=== PATIENT | female | born 1945 | race Caucasian/White ===

== ENCOUNTER 2017-05-03 10:01 | Emergency (ER) | payer MEDICARE, BC ==
[2017-05-03] MEDS ORDERED: Sodium Chloride 0.9% 1,000 ML IV ONE (10:14)
[2017-05-03] MEDS ORDERED: Lidocaine/Prilocaine 2.5-2.5% Crm 5 GM Tube TOP ONE (10:45)
--- NOTE | 2017-05-03 10:55 | EDM.PDOC ---
ED HPI GENERAL MEDICAL PROBLEM - General Chief Complaint: Abdominal Pain Stated Complaint: ABDOMINAL PAIN Time Seen by Provider: 05/03/17 10:31 Source of Information: Reports: Patient History Limitations: Reports: No Limitations - History of Present Illness INITIAL COMMENTS - FREE TEXT/NARRATIVE: PT STATES SHE DEVELOPED ABD PAIN 2 DAYS AGO AND IS PROGRESSIVELY GETTING WORSE. H/O PANCREATIC CA AND SBO 2 YEARS AGO. TAKING PRUNE JUICE AND LAXATIVE AND NOW HAS DIARRHEA WITHOUT VISIBLE BLOOD. RECEIVED CHEMO ON 04/27. DENIES FEVER, DYSURIA, OR VOMITING BLOOD. Onset: Gradual Onset Date: 05/01/17 Duration: Day(s): Location: Reports: Abdomen Quality: Reports: Dull Severity: Mild Improves with: Reports: None Worsens with: Reports: None Associated Symptoms: Reports: Nausea/Vomiting. Denies: Fever/Chills Treatments S[employer]ING [employer] WORK[employer]: Reports: Other Medication(s) (LAXITIVES) - Related Data Allergies Allergy/AdvReac Type Severity Reaction Status Date / Time hydromorphone HCl Allergy Confusion Verified 05/03/17 10:11 [From Dilaudid] Home Meds: Home Meds Atropine/Diphenoxylate [Lomotil 0.025-2.5 MG] 1 tab PO QID PRN 09/12/15 [History ] Calcium Citrate/Vitamin D3 [Calcitrate + Vit D Cap (315 MG/250 UNITS)] 1 each PO DAILY 09/12/15 [History] Ranitidine HCl [Ranitidine] 150 mg PO BID 09/12/15 [History] Past Medical History Gastrointestinal History: Reports: Other (See Below) Other Gastrointestinal History: pancreatic cancer Genitourinary History: Reports: None Musculoskeletal History: Reports: None Hematologic History: Reports: Blood Transfusion(s) Oncologic (Cancer) History: Reports: Breast - Past Surgical History GI Surgical History: Reports: Other (See Below) Female Surgical History: Reports: Breast Biopsy, Mastectomy Other Musculoskeletal Surgeries/Procedures:: bunyon surgery Oncologic Surgical History: Reports: Biopsy of Breast, Mastectomy Social & Family History - Tobacco Use Smoking Status *Q: Former Smoker Years of Tobacco use: 5 Packs/Tins Daily: 0.5 Used Tobacco, but Quit: Yes Month Tobacco Last Used: 10 Second Hand Smoke Exposure: Yes - Recreational Drug Use Recreational Drug Use: No ED ROS GENERAL - Review of Systems Review Of Systems: ROS reveals no pertinent complaints other than HPI. Constitutional: Reports: Decreased Appetite HEENT: Reports: No Symptoms Respiratory: Reports: No Symptoms Cardiovascular: Reports: No Symptoms Endocrine: Reports: No Symptoms GI/Abdominal: Reports: Abdominal Pain, Diarrhea, Nausea. Denies: Black Stool, Bloody Stool : Reports: No Symptoms Musculoskeletal: Reports: No Symptoms Skin: Reports: No Symptoms Neurological: Reports: No Symptoms Psychiatric: Reports: No Symptoms Hematologic/Lymphatic: Reports: No Symptoms Immunologic: Reports: No Symptoms ED EXAM, GI/ABD - Physical Exam Exam: See Below Exam Limited By: No Limitations General Appearance: Alert, WD/WN, No Apparent Distress Nose: Normal Inspection, Normal Mucosa, No Blood Throat/Mouth: Normal Inspection, Normal Oropharynx, No Airway Compromise Head: Atraumatic, Normocephalic Neck: Normal Inspection, Supple Respiratory/Chest: No Respiratory Distress, Lungs Clear, Normal Breath Sounds, No Accessory Muscle Use, Chest Non-Tender Cardiovascular: Regular Rate, Rhythm, No Murmur GI/Abdominal: No Distention, No Mass, Hyperactive Bowel Sounds, Tenderness ( EPIGASTRIC). No: Guarding, Rebound, Rigidity Back Exam: Normal Inspection. No: CVA Tenderness (L), CVA Tenderness (R) Extremities: Normal Inspection, Non-Tender, No Pedal Edema Neurological: Alert, Oriented, Normal Cognition Psychiatric: Normal Affect, Normal Mood Skin Exam: Warm, Dry, Intact, Normal Color, No Rash Lymphatic: No Adenopathy Course - Vital Signs Last Recorded V/S: Last Vital Signs Temp 97.9 F 05/03/17 10:05 Pulse 96 05/03/17 10:05 Resp 16 05/03/17 10:05 BP 111/69 05/03/17 10:05 Pulse Ox 99 05/03/17 10:05 - Orders/Labs/Meds Orders: Active Orders 24 hr Category Date Time Status Abdomen w Cont [CT] Stat Exams 05/03/17 10:31 Ordered AMYLASE [CHEM] Stat Lab 05/03/17 10:14 Ordered CBC WITH AUTO DIFF [HEME] Stat Lab 05/03/17 10:11 Ordered CMP [COMPREHENSIVE METABOLIC PN,CMP] [CHEM] Stat Lab 05/03/17 10:14 Ordered LIPASE [CHEM] Stat Lab 05/03/17 10:14 Ordered URINALYSIS W/MICROSCOPIC [UA W/MICROSCOPIC] [URIN] Stat Lab 05/03/17 10:33 Uncollected Sodium Chloride 0.9% [Normal Saline] 1,000 ml Med 05/03/17 10:14 Active IV .BOLUS Medication Orders Sodium Chloride (Normal Saline) 1,000 mls @ 999 mls/hr IV .BOLUS ONE Stop: 05/03/17 11:14 Meds: Medications Generic Name Dose Route Start Last Admin Trade Name Foreign PRN Reason Stop Dose Admin Sodium Chloride 1,000 mls @ 999 mls/hr 05/03/17 10:14 Normal Saline IV 05/03/17 11:14 .BOLUS ONE - Radiology Interpretation Free Text/Narrative:: CT ABD/PELVIS NO CHANGES FROM 02/10/16 CT Results Date: 05/03/17 - Re-Assessments/Exams Free Text/Narrative Re-Assessment/Exam: 05/03/17 13:06 PT AFEBRILE, NONTOXIC APPEARING, VSS, PAIN RESOLVED. Departure - Departure Time of Disposition: 13:08 Disposition: Home, Self-Care 01 Condition: Good Clinical Impression: Abdominal pain - Discharge Information Instructions: Abdominal Pain, Adult, [id number], Pancreatic Cancer Additional Instructions: FOLLOW UP WITH PCP SCHEDULED. RETURN TO ER SOONER IF SYMPTOMS CONTINUE - My Orders Last 24 Hours: My Active Orders 05/03/17 10:11 CBC WITH AUTO DIFF [HEME] Stat 05/03/17 10:14 AMYLASE [CHEM] Stat CMP [COMPREHENSIVE METABOLIC PN,CMP] [CHEM] Stat LIPASE [CHEM] Stat Sodium Chloride 0.9% [Normal Saline] 1,000 ml IV .BOLUS 05/03/17 10:31 Abdomen w Cont [CT] Stat 05/03/17 10:33 URINALYSIS W/MICROSCOPIC [UA W/MICROSCOPIC] [URIN] Stat - Assessment/Plan Last 24 Hours: My Active Orders 05/03/17 10:11 CBC WITH AUTO DIFF [HEME] Stat 05/03/17 10:14 AMYLASE [CHEM] Stat CMP [COMPREHENSIVE METABOLIC PN,CMP] [CHEM] Stat LIPASE [CHEM] Stat Sodium Chloride 0.9% [Normal Saline] 1,000 ml IV .BOLUS 05/03/17 10:31 Abdomen w Cont [CT] Stat 05/03/17 10:33 URINALYSIS W/MICROSCOPIC [UA W/MICROSCOPIC] [URIN] Stat Assessment:: ABDOMINAL PAIN Plan: FOLLOW UP WITH PCP
[2017-05-03 11:40] LABS: CHLORIDE,CL 104 mmol/L (98-115); SODIUM,NA 136 mmol/L (136-145)
[2017-05-03 11:55] VITALS: BP 98/56
[2017-05-03] MEDS ORDERED: Heparin Sodium 100 Units/ML 5 ML MDV FLUSH ONE (13:14)
== END 2017-05-03 13:35 | disposition home or self-care (01) ==
LOC: KA.ED 10:01
DX: R10.9 Unspecified abdominal pain (principal); Z88.8 Allergy status to other drugs, medicaments and biological substances; Z87.891 Personal history of nicotine dependence
CPT/HCPCS: 74176; 80053; 82150; 83690; 85025; 96360; 99284; J1642; J7030

== ENCOUNTER 2017-07-07 13:00 | Emergency (ER) | payer MEDICARE, BC ==
[2017-07-07 13:11] VITALS: BP 114/67
[2017-07-07] MEDS ORDERED: Sodium Chloride 0.9% 1,000 ML IV ONE (14:23)
--- NOTE | 2017-07-07 14:31 | EDM.PDOC ---
ED HPI GENERAL MEDICAL PROBLEM - General Chief Complaint: General Stated Complaint: SOB/WEAKNESS Time Seen by Provider: 07/07/17 13:38 Source of Information: Reports: Patient, Family () History Limitations: Reports: No Limitations - History of Present Illness INITIAL COMMENTS - FREE TEXT/NARRATIVE: Patient presents with general weakness since her chemo treatment 8 days ago. 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 She had half of her pancreas removed two years ago with cancer. She normally feels weak like this for a few days but then rebounds by this time. She still has no appetite and hasn't eaten or drank well for over a week. Only about 20 oz of water daily; half a piece of toast or a TV dinner is about all she gets a day. No fever, dysuria, cough. Has had loose stools/diarrhea 2-3x/day for last 4 days she thinks is due to her chemo meds. She brought a CBC from clinic two days ago which shows WBC of 6.7. Right Abdominal Pain Score (Numeric/FACES): 2 - Related Data Allergies Allergy/AdvReac Type Severity Reaction Status Date / Time hydromorphone HCl Allergy Confusion Verified 07/07/17 13:11 [From Dilaudid] Home Meds: Home Meds Atropine/Diphenoxylate [Lomotil 0.025-2.5 MG] 1 tab PO QID PRN 09/12/15 [History ] Calcium Citrate/Vitamin D3 [Calcitrate + Vit D Cap (315 MG/250 UNITS)] 2 each PO DAILY 09/12/15 [History] Acetaminophen 650 mg PO Q4H 05/03/17 [History] Amylase/Lipase/Protease [Pancrelipase 5,000] 2 cap PO TIDMEALS 05/03/17 [History ] Dexamethasone 2 tab PO DAILY 05/03/17 [History] Lisinopril 2.5 mg PO DAILY 05/03/17 [History] Multivitamin with Minerals [Multiple Vitamin] 1 tab PO DAILY 05/03/17 [History] Ondansetron [Zofran Odt] 8 mg PO Q8H PRN 05/03/17 [History] Prochlorperazine [Compazine] 10 mg PO Q6H PRN 05/03/17 [History] LORazepam 0.5 - 1 mg PO BEDTIME 07/07/17 [History] Loperamide [Imodium] 2 mg PO ASDIRECTED 07/07/17 [History] Potassium Chloride [Klor-Con M20] 20 meq PO DAILY 07/07/17 [History] Ranitidine [Zantac] 150 mg PO BID 07/07/17 [History] Rivaroxaban [Xarelto] 20 mg PO 1800 07/07/17 [History] Past Medical History Gastrointestinal History: Reports: Other (See Below) Other Gastrointestinal History: pancreatic cancer Genitourinary History: Reports: None Musculoskeletal History: Reports: None Hematologic History: Reports: Blood Transfusion(s) Oncologic (Cancer) History: Reports: Breast - Past Surgical History GI Surgical History: Reports: Other (See Below) Female Surgical History: Reports: Breast Biopsy, Mastectomy Other Musculoskeletal Surgeries/Procedures:: bunyon surgery Oncologic Surgical History: Reports: Biopsy of Breast, Mastectomy Social & Family History - Tobacco Use Smoking Status *Q: Former Smoker Years of Tobacco use: 5 Packs/Tins Daily: 0.5 Used Tobacco, but Quit: Yes Month Tobacco Last Used: 10 Second Hand Smoke Exposure: Yes - Caffeine Use Caffeine Use: Reports: None - Recreational Drug Use Recreational Drug Use: No ED ROS GENERAL - Review of Systems Review Of Systems: See Below Constitutional: Reports: Weakness, Fatigue. Denies: Fever, Chills HEENT: Reports: No Symptoms Respiratory: Denies: Cough Cardiovascular: Reports: Lightheadedness (when she stands up to quickly; she has to go slowly the past few days). Denies: Chest Pain GI/Abdominal: Reports: Abdominal Pain (tender areas for awhile), Anorexia, Diarrhea, Decreased Appetite. Denies: Vomiting : Denies: Dysuria, Flank Pain Musculoskeletal: Reports: No Symptoms Skin: Denies: Cyanosis, Jaundice, Mottled, Pallor, Diaphoresis Neurological: Denies: Confusion, Dizziness, Headache, Trouble Speaking Psychiatric: Denies: Agitation, Anxiety, Confusion ED EXAM, GENERAL - Physical Exam Exam: See Below Exam Limited By: No Limitations General Appearance: Alert, WD/WN, No Apparent Distress Eye Exam: Bilateral Eye: EOMI, Normal Inspection, PERRL Ears: Normal External Exam, Hearing Grossly Normal Nose: Normal Inspection, No Blood Throat/Mouth: Normal Inspection, Normal Lips, Normal Voice, No Airway Compromise Head: Atraumatic, Normocephalic Neck: Normal Inspection, Supple, Non-Tender, Full Range of Motion Respiratory/Chest: No Respiratory Distress, Lungs Clear, Normal Breath Sounds, No Accessory Muscle Use Cardiovascular: Regular Rate, Rhythm, No Murmur GI/Abdominal: Normal Bowel Sounds, Soft, Tender (mid to LUQ) Extremities: Normal Range of Motion, No Pedal Edema Neurological: Alert, Oriented, Normal Cognition, No Motor/Sensory Deficits Psychiatric: Normal Affect, Normal Mood Skin Exam: Warm, Dry, Intact, Normal Color, No Rash Course - Vital Signs Last Recorded V/S: Last Vital Signs Temp 96.2 F 07/07/17 13:06 Pulse 114 H 07/07/17 13:06 Resp 20 07/07/17 13:06 BP 114/67 07/07/17 13:06 Pulse Ox 100 07/07/17 13:06 - Orders/Labs/Meds Orders: Active Orders 24 hr Category Date Time Status CBC WITH AUTO DIFF [HEME] Stat Lab 07/07/17 14:21 Ordered COMPREHENSIVE METABOLIC PN,CMP [CHEM] Stat Lab 07/07/17 14:21 Ordered UA W/MICROSCOPIC [URIN] Stat Lab 07/07/17 14:21 Uncollected Sodium Chloride 0.9% @ 999 MLS/HR (1000ml) Med 07/07/17 14:23 Ordered Sodium Chloride 0.9% [Normal Saline] 1,000 ml IV .BOLUS - Re-Assessments/Exams Free Text/Narrative Re-Assessment/Exam: 07/07/17 16:52 Patient is quite anxious and will give a dose of Lorazepam now. The IV fluids are in and patient was up to the bathroom okay. She says she feels weak and is concerned about going home. She says her sleeps in another room because of his snoring, and she sometimes can't awaken him when she needs him in the night. I suggested each of them having their cell phones beside them for that which she thought might work if he wakens to it. Departure - Departure Time of Disposition: 17:01 Disposition: Home, Self-Care 01 Condition: Good Clinical Impression: Weakness generalized, Dehydration due to radiation - Discharge Information Referrals: Parker Merritt MD [Primary Care Provider] - Additional Instructions: 1. Try to get more water intake; ideally 8 cups daily. 2. Try to make sure you get at least small portions of food 2-3 times a day. Basically whatever sounds good at this point just to get some nutrition each day. 3. Follow up with your PCP tomorrow for recheck. - My Orders Last 24 Hours: My Active Orders 07/07/17 14:21 CBC WITH AUTO DIFF [HEME] Stat COMPREHENSIVE METABOLIC PN,CMP [CHEM] Stat UA W/MICROSCOPIC [URIN] Stat 07/07/17 14:23 Sodium Chloride 0.9% @ 999 MLS/HR (1000ml) Sodium Chloride 0.9% [Normal Saline] 1,000 ml IV .BOLUS - Assessment/Plan Last 24 Hours: My Active Orders 07/07/17 14:21 CBC WITH AUTO DIFF [HEME] Stat COMPREHENSIVE METABOLIC PN,CMP [CHEM] Stat UA W/MICROSCOPIC [URIN] Stat 07/07/17 14:23 Sodium Chloride 0.9% @ 999 MLS/HR (1000ml) Sodium Chloride 0.9% [Normal Saline] 1,000 ml IV .BOLUS
[2017-07-07 14:39] LABS: CHLORIDE,CL 106 mmol/L (98-115); SODIUM,NA 137 mmol/L (136-145)
[2017-07-07] MEDS ORDERED: LORazepam 0.5 MG Tab PO ONE (16:51)
[2017-07-07] MEDS ORDERED: Loperamide 2 MG Cap PO ONE (16:55)
== END 2017-07-07 17:20 | disposition home or self-care (01) ==
LOC: KA.ED 13:00
DX: T66.XXXA Radiation sickness, unspecified, initial encounter (principal); E86.0 Dehydration; C79.89 Secondary malignant neoplasm of other specified sites; Z79.899 Other long term (current) drug therapy; Z88.8 Allergy status to other drugs, medicaments and biological substances; Z85.3 Personal history of malignant neoplasm of breast; Z98.890 Other specified postprocedural states; Z87.891 Personal history of nicotine dependence; Z85.07 Personal history of malignant neoplasm of pancreas; Z90.411 Acquired partial absence of pancreas
CPT/HCPCS: 36415; 80053; 85025; 99284; A9270; J1642; J7030; 96360

== ENCOUNTER 2017-09-01 03:25 | Observation (INO) | payer MEDICARE, BC ==
[2017-09-01] MEDS ORDERED: Ondansetron 4 MG/2 ML SDV IVPUSH ONE (03:39)
[2017-09-01] MEDS ORDERED: Sodium Chloride 0.9% 1,000 ML IV ONE (03:40)
[2017-09-01] MEDS ORDERED: Ondansetron 4 MG/2 ML SDV ONE (03:43)
[2017-09-01] MEDS ORDERED: Sodium Chloride 0.9% 1,000 ML ONE (03:43)
[2017-09-01] MEDS ORDERED: Ketorolac 30 MG/ML SDV IVPUSH ONE (04:00)
[2017-09-01] MEDS ORDERED: Ketorolac 30 MG/ML SDV ONE (04:08)
--- NOTE | 2017-09-01 04:19 | EDM.PDOC ---
ED HPI GENERAL MEDICAL PROBLEM - General Chief Complaint: Abdominal Pain Stated Complaint: abd pain Time Seen by Provider: 09/01/17 04:12 Source of Information: Reports: Patient History Limitations: Reports: No Limitations - History of Present Illness INITIAL COMMENTS - FREE TEXT/NARRATIVE: PT PRESENTS WITH EXACERBATION OF CHRONIC ABD PAIN COMPLAINT. DIAGNOSES WITH PANCREATIC CA 2 YEARS AGO AND IS UNDERGOING CHEMO THERAPY. H/O SAME PAIN ON 3 OCCASIONS OVER PAST 2 MONTHS. UNDERWENT ABD SERIES AND CT SCANS AND FOUND TO HAVE CONSTIPATION WITHOUT SBO. STATES SHE HAS HAD 5-6 BM'S OVER PAST 24 HOURS FOR SMALL SOFT STOOL BUT DENIES BLOOD OR MUCOUS. NAUSEA WITH 2 EPISODES OF VOMITING WITHOUT BLOOD. PAIN DESCRIBED WAXING/WEANING CRAMPING. DENIES FEVER , DYSURIA, CP, SOB, OR FLANK PAIN. Onset: Gradual Duration: Chronic Location: Reports: Abdomen Quality: Reports: Other (CRAMPING) Improves with: Reports: None Worsens with: Reports: None Associated Symptoms: Reports: Nausea/Vomiting, Weakness. Denies: Chest Pain, Fever/Chills, Shortness of Breath - Related Data Allergies Allergy/AdvReac Type Severity Reaction Status Date / Time hydromorphone HCl Allergy Confusion Verified 07/23/17 16:11 [From Dilaudid] Home Meds: Home Meds Atropine/Diphenoxylate [Lomotil 0.025-2.5 MG] 1 tab PO QID PRN 09/12/15 [History ] Calcium Citrate/Vitamin D3 [Calcitrate + Vit D Cap (315 MG/250 UNITS)] 2 each PO DAILY 09/12/15 [History] Acetaminophen 650 mg PO Q4H PRN 05/03/17 [History] Amylase/Lipase/Protease [Pancrelipase 5,000] 2 cap PO TIDMEALS 05/03/17 [History ] Dexamethasone 8 mg PO ASDIRECTED 05/03/17 [History] Lisinopril 2.5 mg PO DAILY 05/03/17 [History] Multivitamin with Minerals [Multiple Vitamin] 1 tab PO DAILY 05/03/17 [History] Ondansetron [Zofran Odt] 8 mg PO TID PRN 05/03/17 [History] Prochlorperazine [Compazine] 10 mg PO QID PRN 05/03/17 [History] LORazepam 0.5 - 1 mg PO BEDTIME 07/07/17 [History] Loperamide [Imodium] 2 mg PO ASDIRECTED PRN 07/07/17 [History] Potassium Chloride [Klor-Con M20] 20 meq PO DAILY 07/07/17 [History] Ranitidine [Zantac] 150 mg PO BID 07/07/17 [History] Rivaroxaban [Xarelto] 20 mg PO 1800 07/07/17 [History] Past Medical History Gastrointestinal History: Reports: Other (See Below) Other Gastrointestinal History: pancreatic cancer Genitourinary History: Reports: None Musculoskeletal History: Reports: None Hematologic History: Reports: Blood Transfusion(s) Immunologic History: Reports: Immunosuppression Oncologic (Cancer) History: Reports: Breast, Pancreatic - Past Surgical History Female Surgical History: Reports: Breast Biopsy, Mastectomy Other Musculoskeletal Surgeries/Procedures:: bunyon surgery Oncologic Surgical History: Reports: Biopsy of Breast, Mastectomy Social & Family History - Tobacco Use Smoking Status *Q: Former Smoker Years of Tobacco use: 5 Packs/Tins Daily: 0.5 Used Tobacco, but Quit: Yes Month Tobacco Last Used: 10 Second Hand Smoke Exposure: No - Caffeine Use Caffeine Use: Reports: None - Recreational Drug Use Recreational Drug Use: No ED ROS GENERAL - Review of Systems Review Of Systems: ROS reveals no pertinent complaints other than HPI. Constitutional: Reports: Weakness (GENERALIZED OF CHRONIC NATURE) HEENT: Reports: No Symptoms Respiratory: Reports: No Symptoms Cardiovascular: Reports: No Symptoms Endocrine: Reports: No Symptoms GI/Abdominal: Reports: Abdominal Pain, Constipation, Decreased Appetite, Nausea , Vomiting. Denies: Bloody Stool : Reports: No Symptoms Musculoskeletal: Reports: No Symptoms Skin: Reports: No Symptoms Neurological: Reports: No Symptoms Psychiatric: Reports: No Symptoms Hematologic/Lymphatic: Reports: No Symptoms Immunologic: Reports: No Symptoms ED EXAM, GI/ABD - Physical Exam Exam: See Below Exam Limited By: No Limitations General Appearance: Alert, WD/WN, No Apparent Distress Nose: Normal Inspection, Normal Mucosa, No Blood Throat/Mouth: Normal Inspection, Normal Oropharynx, No Airway Compromise Head: Atraumatic, Normocephalic Neck: Normal Inspection Respiratory/Chest: No Respiratory Distress, Lungs Clear, Normal Breath Sounds, No Accessory Muscle Use, Chest Non-Tender Cardiovascular: Regular Rate, Rhythm, No Murmur GI/Abdominal Exam: Normal Bowel Sounds, Soft, No Distention, No Abnormal Bruit, No Mass, Tender (DIFFUSELY). No: Guarding, Rigid, Rebound Back Exam: Normal Inspection. No: CVA Tenderness (L), CVA Tenderness (R) Extremities: Normal Inspection Neurological: Alert, Oriented Psychiatric: Anxious Skin Exam: Warm, Dry, Intact, Normal Color, No Rash Lymphatic: No Adenopathy Course - Orders/Labs/Meds Orders: Active Orders 24 hr Category Date Time Status CBC WITH AUTO DIFF [HEME] Stat Lab 09/01/17 04:00 Received CMP [COMPREHENSIVE METABOLIC PN,CMP] [CHEM] Stat Lab 09/01/17 04:00 Received Sodium Chloride 0.9% [Normal Saline] 1,000 ml Med 09/01/17 03:40 Active IV .BOLUS Medication Orders Sodium Chloride (Normal Saline) 1,000 mls @ 999 mls/hr IV .BOLUS ONE Stop: 09/01/17 04:40 Meds: Medications Generic Name Dose Route Start Last Admin Trade Name Freq PRN Reason Stop Dose Admin Sodium Chloride 1,000 mls @ 999 mls/hr 09/01/17 03:40 Normal Saline IV 09/01/17 04:40 .BOLUS ONE Discontinued Medications Generic Name Dose Route Start Last Admin Trade Name Freq PRN Reason Stop Dose Admin Sodium Chloride Confirm 09/01/17 03:43 09/01/17 03:52 Normal Saline Administered 09/01/17 03:44 Not Given Dose 1,000 mls @ as directed .ROUTE .STK-MED ONE Ketorolac Tromethamine Confirm 09/01/17 04:08 Toradol Administered 09/01/17 04:09 Dose 30 mg .ROUTE .STK-MED ONE Ondansetron HCl 4 mg 09/01/17 03:39 Zofran IVPUSH 09/01/17 03:40 ONETIME ONE Ondansetron HCl Confirm 09/01/17 03:43 09/01/17 03:52 Zofran Administered 09/01/17 03:44 Not Given Dose 4 mg .ROUTE .STK-MED ONE - Re-Assessments/Exams Free Text/Narrative Re-Assessment/Exam: 09/01/17 04:58 PT AFEBRILE, NONTOXIC APPEARING, PAIN CONTROLLED. DISCUSSED CASE WITH DR PORTER. WILL GIVE ZOSYN AND ADMIT TO OBS Departure - Departure Time of Disposition: 04:59 Disposition: Refer to Observation Condition: Fair Clinical Impression: Abdominal pain Qualifiers: Abdominal location: generalized Qualified Code(s): R10.84 - Generalized abdominal pain Leukocytosis Qualifiers: Leukocytosis type: unspecified Qualified Code(s): D72.829 - Elevated white blood cell count, unspecified - Discharge Information - My Orders Last 24 Hours: My Active Orders 09/01/17 03:40 Sodium Chloride 0.9% [Normal Saline] 1,000 ml IV .BOLUS 09/01/17 04:00 CBC WITH AUTO DIFF [HEME] Stat CMP [COMPREHENSIVE METABOLIC PN,CMP] [CHEM] Stat - Assessment/Plan Last 24 Hours: My Active Orders 09/01/17 03:40 Sodium Chloride 0.9% [Normal Saline] 1,000 ml IV .BOLUS 09/01/17 04:00 CBC WITH AUTO DIFF [HEME] Stat CMP [COMPREHENSIVE METABOLIC PN,CMP] [CHEM] Stat Assessment:: ABD PAIN / LEUKOCYTOSIS Plan: ADMIT OBS TO DR PORTER
[2017-09-01 04:33] LABS: CHLORIDE,CL 107 mmol/L (98-115); SODIUM,NA 143 mmol/L (136-145)
[2017-09-01] MEDS ORDERED: Piperacillin/Tazobactam/Dext 3.375 GM in Premix Bag 1 BAG IV ONE (04:57)
[2017-09-01] MEDS: Sodium Chloride 0.9% 1,000 ML IV SCH ×2 (05:00→14:58)
--- NOTE | 2017-09-01 09:07 | PCM.HP ---
H&P History of Present Illness - General Date of Service: 09/01/17 Source of Information: Patient, Old Records, RN History Limitations: Reports: No Limitations - History of Present Illness Initial Comments - Free Text/Narative: This 71-year-old female was admitted very early this morning through the ED complaining of some abdominal pain. Shanti was diagnosed with pancreatic cancer January 2015 and she is currently receiving Folfirinox, along with Abraxane & Gemzar. Patient has had similar episodes of abdominal pain and was seen by oncology approximately 2 weeks ago with similar complaints in which x-ray abdominal x-ray demonstrated non-obstructive bowel gas pattern with some moderate constipation--she was given laxatives which did seem to help. However ever since she states she has had altered bowel habits in which she will go multiple times during the day however they are formed and soft. She denies diarrhea, bloody stools or mucousy stools. Her pain was described in the ED as waxing and waning such as cramping. No fever or dysuria, denied chest pain flank pain or shortness of breath. Was seen in the [facility] yesterday for IV fluids for dehydration. She has not felt well for days, she is to see Dr Sun next week in [place]. She denies any home fevers, however admits to very low temps of 94. Had Wipple procedure 2- 3 years ago and had SBO at that time and patient feels her current abd pain is similar in nature. Vomited one time last night. Had been on fentanyl for pain. Lower Abdominal Pain Score (Numeric/FACES): 2 - Related Data Allergies/Adverse Reactions: Allergies Allergy/AdvReac Type Severity Reaction Status Date / Time hydromorphone HCl Allergy Confusion Verified 09/01/17 05:04 [From Dilaudid] morphine Allergy Confusion Verified 09/01/17 05:04 Home Medications: Home Meds Atropine/Diphenoxylate [Lomotil 0.025-2.5 MG] 1 tab PO QID PRN 09/12/15 [History ] Calcium Citrate/Vitamin D3 [Calcitrate + Vit D Cap (315 MG/250 UNITS)] 2 each PO DAILY 09/12/15 [History] Acetaminophen 650 mg PO Q4H PRN 05/03/17 [History] Amylase/Lipase/Protease [Pancrelipase 5,000] 2 cap PO TIDMEALS 05/03/17 [History ] Dexamethasone 8 mg PO ASDIRECTED 05/03/17 [History] Lisinopril 2.5 mg PO DAILY 05/03/17 [History] Multivitamin with Minerals [Multiple Vitamin] 1 tab PO DAILY 05/03/17 [History] Ondansetron [Zofran Odt] 8 mg PO TID PRN 05/03/17 [History] Prochlorperazine [Compazine] 10 mg PO QID PRN 05/03/17 [History] LORazepam 0.5 - 1 mg PO BEDTIME 07/07/17 [History] Loperamide [Imodium] 2 mg PO ASDIRECTED PRN 07/07/17 [History] Potassium Chloride [Klor-Con M20] 20 meq PO DAILY 07/07/17 [History] Ranitidine [Zantac] 150 mg PO BID 07/07/17 [History] Rivaroxaban [Xarelto] 20 mg PO 1800 07/07/17 [History] Past Medical History HEENT History: Reports: Hard of Hearing, Impaired Vision Cardiovascular History: Reports: Hypertension Gastrointestinal History: Reports: Chronic Constipation, Diverticulosis, GERD, Hemorrhoids, Other (See Below) Other Gastrointestinal History: pancreatic cancer with mets to the transverse colon Genitourinary History: Reports: None Musculoskeletal History: Reports: None, Back Pain, Chronic Hematologic History: Reports: Blood Transfusion(s) Immunologic History: Reports: Immunosuppression Oncologic (Cancer) History: Reports: Breast, Colon, Pancreatic - Infectious Disease History 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, Herpes - Past Surgical History HEENT Surgical History: Reports: Tonsillectomy Other Respiratory Surgeries/Procedures: h/o smoking GI Surgical History: Reports: Cholecystectomy, Colonoscopy, Other (See Below) Other GI Surgeries/Procedures: whipple resection Female Surgical History: Reports: Breast Biopsy, Mastectomy, Tubal Ligation Other Musculoskeletal Surgeries/Procedures:: bunyon surgery Oncologic Surgical History: Reports: Biopsy of Breast, Mastectomy Social & Family History - Tobacco Use Smoking Status *Q: Former Smoker Years of Tobacco use: 30 Packs/Tins Daily: 0.5 Used Tobacco, but Quit: Yes Month Tobacco Last Used: 10 Second Hand Smoke Exposure: No - Caffeine Use Caffeine Use: Reports: None - Recreational Drug Use Recreational Drug Use: No H&P Review of Systems - Review of Systems: Review Of Systems: See Below General: Reports: Chills, Decreased Appetite, Weight Loss. Denies: Fever HEENT: Reports: Other (dry mouth) Pulmonary: Reports: Shortness of Breath (on exertion ). Denies: Cough, Sputum Cardiovascular: Reports: Dyspnea on Exertion. Denies: PND, Edema Gastrointestinal: Reports: Abdominal Pain (very mild abd pain, diffuse, non specific, slight off to right side. ). Denies: Black Stool, Constipation, Diarrhea, Difficulty Swallowing Genitourinary: Reports: No Symptoms Musculoskeletal: Reports: No Symptoms Skin: Reports: No Symptoms Psychiatric: Reports: No Symptoms Neurological: Denies: Confusion Hematologic/Lymphatic: Reports: Anemia. Denies: Swollen Glands Immunologic: Reports: Other (immunocompromised. ) Exam - Exam Exam: See Below - Vital Signs Vital Signs: Last Vital Signs Temp 97.9 F 09/01/17 05:30 Pulse 88 09/01/17 05:30 Resp 20 09/01/17 05:30 BP 117/63 09/01/17 05:30 Pulse Ox 98 09/01/17 05:30 Weight: 112 lb 1.6 oz - Exam Quality Assessment: No: Supplemental Oxygen General: Alert, Oriented, Cooperative. No: Mild Distress HEENT: Conjunctiva Clear, Hearing Intact, Mucosa Moist & [place] Neck: Supple, Trachea Midline. No: JVD Lungs: Clear to Auscultation, Normal Respiratory Effort Cardiovascular: Regular Rate, Regular Rhythm GI/Abdominal Exam: Normal Bowel Sounds, Soft, Non-Tender (slightly tender to left and right upper, non specific, patient has difficult time pinpointing. ), No Organomegaly. No: Distended, Rigid, Rebound, Abnormal Bowel Sounds, Mass Rectal (Female) Exam: Deferred Back Exam: No: CVA Tenderness (L), CVA Tenderness (R) Extremities: No Pedal Edema Peripheral Pulses: 2+: Radial (L), Radial (R) Skin: Warm, Dry, Intact Neurological: Cranial Nerves Intact, Reflexes Equal Bilateral Neuro Extensive - Mental Status: Alert, Oriented x3, Normal Mood/Affect, Normal Cognition Neuro Extensive - Motor, Sensory, Reflexes: CN II-XII Intact, Normal Gait, Normal Reflexes Psychiatric: Alert, Normal Affect, Normal Mood - Patient Data Result Diagrams: 09/01/17 04:00 09/01/17 04:00 *Q Meaningful Use (ADM) - VTE *Q VTE Criteria *Q: - Stroke *Q Stroke Criteria *Q: - AMI *Q AMI Criteria *Q: Problem List Initiated/Reviewed/Updated: Yes Orders Last 24hrs: Active Orders 24 hr Category Date Time Status CXR [Chest 2V] [CR] Routine Exams 09/01/17 08:00 Taken CULTURE BLOOD [BC] Stat Lab 09/01/17 05:20 Received CULTURE BLOOD [BC] Stat Lab 09/01/17 05:30 Received Sodium Chloride 0.9% [Normal Saline] 1,000 ml Med 09/01/17 06:00 Active IV ASDIRECTED Blood Culture x2 Reflex Set [OM.PC] Stat Oth 09/01/17 05:47 Ordered Medication Orders Sodium Chloride (Normal Saline) 1,000 mls @ 100 mls/hr IV ASDIRECTED KATELYN Last Admin: 09/01/17 05:00 Dose: 100 mls/hr Assessment/Plan Comment:: HISTORY OF PRESENT ILLNESS This 71-year-old female was admitted very early this morning through the ED complaining of some abdominal pain. Shanti was diagnosed with pancreatic cancer January 2015 and she is currently receiving Folfirinox, along with Abraxane & Gemzar. Patient has had similar episodes of abdominal pain and was seen by oncology approximately 2 weeks ago with similar complaints in which x-ray abdominal x-ray demonstrated non-obstructive bowel gas pattern with some moderate constipation--she was given laxatives which did seem to help. However ever since she states she has had altered bowel habits in which she will go multiple times during the day however they are formed and soft. She denies diarrhea, bloody stools or mucousy stools. Her pain was described in the ED as waxing and waning such as cramping. No fever or dysuria, denied chest pain flank pain or shortness of breath. Was seen in the [facility] yesterday for IV fluids for dehydration. She has not felt well for days, she is to see Dr Sun next week in [place]. She denies any home fevers, however admits to very low temps of 94. Had Wipple procedure 2- 3 years ago and had SBO at that time and patient feels her current abd pain is similar in nature. Vomited one time last night. Had been on fentanyl for pain. ONCOLOGY HISTORY Shanti originally presented to the [facility] with complaints of jaundice in January 2015. An endoscopic US showed a 3.3 cm pancreatic head mass which was encasing and invading the common hepatic artery and making contact with portal vein superior mesenteric vein confluence. Subsequent fine-needle aspiration confirmed malignancy consistent with adenocarcinoma of the pancreas. She received pre-op chemotherapy with FOLFIRINOX starting on 02/20/15. She received 6 cycles. The last cycle was on 05/08/15. She then had a Whipple resection procedure on June 13, 2015. Notify for her to get her chemotherapy in [place] she was recently changed to Gemcitabine/Abraxane with her first doses in [place]. The plan is for her to see onlcology at [facility] 09/08/17 before her next cycle of chemo which should be scheduled on 09/15/17 long as her LFTs are improving. PERTINENT ED WORKUP White count 26,000 (on CSF of Zarxio/filgrastim) Neutrophils 89% Abnormal liver function tests Hypoalbuminemia blood cultures and UA ordered prior to antibiotics broad-spectrum antibiotics IV fluids Admitted to observation Abdominal x-ray, 2016, ordered by oncology due to similar abdominal pain --No free air, moderate amount of stool, non-obstructive bowel gas pattern Abd CT; dtd 07/15/2017 --No evidence of metastatic disease within the chest. --Interval decrease in size of metastatic implants along the proximal to mid transverse colon and within the posterior cul de sac. No new or enlarging abdominal metastases are identified. --Interval mild decrease in size of enlarged central mesenteric lymph nodes. --Diffuse hepatic steatosis --Postoperative changes of prior Whipple procedure without evidence of complication --Liver US, 07/2017, fatty liver PERTINENT SURGICAL HISTORY Whipple resection, 2014 Cholecystectomy Pancreatic excision/Pancreaticoduodenectomy Impression/plan Abdominal pain, mild, diffuse. Will monitor. continue with broad-spectrum antibiotics and ongoing monitoring. Trend LFTs, must trend down in order for her to continue with Gemcitabine/Abraxane here in [place]. She is due September 03 Leukocytosis, neutrophilia, had been on Zarxio/filgrastim, colony-stimulating factor. Will monitor for any signs of sepsis. Stage IIB adenocarcinoma of the pancreas, DX, January 2015, recently underwent cycle #8 of FOLFIRINOX, along with Abraxane & Gemzar. Dehydration, mild, not tolerating adequate oral so continue with IV gentle Anemia, due to chemotherapy, hemoglobin 8.2, BACH, 1 g drop from yesterday however likely dilutional component also. Will hold on any transfusion for now. Hypoalbuminemia, profound. Nutritional supplements ordered. Immunocompromised host, afebrile, Hypocalcemia, corrected with albumin Osteoporosis, Started Prolia on 11/20/16. Fatty liver disease, with elevated LFT's will trend since she is on Gemcitabine/ Abraxane here in [place]. 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 Overall plan/discharge planning. Continue with observation, no criteria for acute admission for now. IV fluids today, monitor and trend LFTs, will see if she needs any radiological images. social service consultation, order for her to continue with Gemcitabine/Abraxane here in [place], LFTs must trend down. She is due September 03. Do not anticipate acute admission. Been you broad-spectrum IV antibiotics. Nutritional support. Monitor for ongoing abdominal pain and worsening condition.
[2017-09-01] MEDS ORDERED: Acetaminophen 325 MG Tab PO PRN (09:55)
[2017-09-01] MEDS ORDERED: Atropine/Diphenoxylate 0.025-2.5 MG Tab PO PRN (09:55)
[2017-09-01] MEDS ORDERED: Prochlorperazine 5 MG Tab PO PRN (09:55)
[2017-09-01] MEDS ORDERED: Dexamethasone 4 MG Tab PO SCH (10:00)
[2017-09-01] MEDS ORDERED: Ondansetron 4 MG/2 ML SDV IVPUSH PRN (11:41)
[2017-09-01] MEDS ORDERED: Ondansetron 4 MG Tab.DIS PO ONE (11:41)
[2017-09-01] MEDS ORDERED: Ondansetron 4 MG Tab.DIS PO PRN (11:50)
[2017-09-01] MEDS: PANCRELIPASE PO SCH ×2 (12:06→18:02)
[2017-09-01] MEDS ORDERED: Sodium Chloride 0.9% 1,000 ML IV SCH (15:45)
[2017-09-01] MEDS ORDERED: Iopamidol 612 MG/ML 75 ML Bottle IV ONE (16:34)
[2017-09-01] MEDS ORDERED: Sodium Chloride 0.9% 50 ML SDV FLUSH SCH (16:45)
[2017-09-01] MEDS ORDERED: Rivaroxaban 10 MG Tab PO SCH (18:00)
[2017-09-01 18:45] VITALS: BP 113/76
[2017-09-01] MEDS ORDERED: LORazepam 0.5 MG Tab PO SCH (21:00)
--- NOTE | 2017-09-02 08:11 | DISCH ---
FINAL DIAGNOSES: 1. Pancreatic carcinoma with metastasis to the abdomen. 2. High-grade proximal small-bowel obstruction. REASON FOR ADMISSION: This 71-year-old patient was admitted in the early hours of the morning to [facility] because of an elevated white count and with a left shift. She had some minimal abdominal pain also. The patient is currently receiving chemotherapy for a pancreatic carcinoma that has disseminated into her abdomen. She does have metastatic carcinoma in her abdomen over the transverse colon and the proximal colon also. Recently, she was admitted to the [facility] because of obstipation. LABORATORY DATA: Lab data is as follows, the patient's white count was 26,000, hemoglobin is 8.2, neutrophils 89.5, and lymphocytes of 4.5. Sodium, potassium chloride, carbon dioxide, BUN, creatinine are normal. Blood sugar was 186. Her AST was 95, normal 37. ALT was 243, normal 78. Alkaline phosphatase was 327, normal 116. HOSPITAL COURSE AND TREATMENT: The patient was admitted to the hospital and was given IV Zosyn. Chest x-ray was normal. The patient was observed carefully. She was felt to be somewhat dehydrated. IVs were increased. She was continued on lisinopril, Ativan, and Tylenol. Through the course of the day, the patient's complained of increased abdominal pain and slight distention. A flat plate of the abdomen revealed a full stomach and multiple fluid levels suggestive of possible small bowel obstruction. A CT scan was performed which shows a high-grade proximal small-bowel obstruction. Surgery at [facility] was called and a transfer was made to [place] via ground ambulance with an IV running. Medications were called in for nausea and for pain control during the transfer. The patient was also informed of the transfer. She was in a stable condition. /[id number]/MODL MTDD
[2017-09-02] MEDS ORDERED: Potassium Chloride 20 MEQ Tab.ER PO SCH (09:00)
[2017-09-02] MEDS ORDERED: Lisinopril 5 MG Tab PO SCH (09:00)
== END 2017-09-01 19:00 ==
LOC: KA.ED 03:25 → KA.MS 05:10
PROVIDERS: ADMIT Family Medicine; ATTEND Family Medicine
DX: C79.89 Secondary malignant neoplasm of other specified sites (principal); C25.9 Malignant neoplasm of pancreas, unspecified; K56.609 Unspecified intestinal obstruction, unspecified as to partial versus complete obstruction; K59.09 Other constipation; I10 Essential (primary) hypertension; K21.9 Gastro-esophageal reflux disease without esophagitis; Z90.49 Acquired absence of other specified parts of digestive tract; Z98.890 Other specified postprocedural states; Z98.51 Tubal ligation status; Z87.891 Personal history of nicotine dependence; Z88.8 Allergy status to other drugs, medicaments and biological substances; Z79.899 Other long term (current) drug therapy
CPT/HCPCS: 71020; 74020; 74177; 80053; 85025; 85651; 87040; 96361; 96374; 96375; 99284; J1885; J2405; J2543; J7030; Q0164; Q9967; 43752; 51798; 96365; 96376; G0378

== ENCOUNTER 2017-09-09 09:23 | Inpatient (IN) | payer MEDICARE, BC ==
--- NOTE | 2017-09-09 13:53 | PCM.HP ---
H&P History of Present Illness - General Date of Service: 09/09/17 Source of Information: Patient, Family, Old Records, RN History Limitations: Reports: No Limitations Lower Back Pain Score (Numeric/FACES): 5 Abdominal Pain Score (Numeric/FACES): 5 - Related Data Allergies/Adverse Reactions: Allergies Allergy/AdvReac Type Severity Reaction Status Date / Time hydromorphone HCl Allergy Confusion Verified 09/09/17 13:39 [From Dilaudid] morphine Allergy Confusion Verified 09/09/17 13:39 Home Medications: Home Meds Acetaminophen 650 mg PO Q6HR PRN 05/03/17 [History] Ondansetron [Zofran Odt] 8 mg PO TID PRN 05/03/17 [History] Prochlorperazine [Compazine] 10 mg PO QID PRN 05/03/17 [History] LORazepam 0.5 mg PO BEDTIME 07/07/17 [History] Ranitidine [Zantac] 150 mg PO BEDTIME 07/07/17 [History] Rivaroxaban [Xarelto] 20 mg PO DAILY@1800 07/07/17 [History] Lipase/Protease/Amylase [Librado [place] 8,000 Units Capsule] 2 cap PO WITHSNACKS 12/25 [History] Lipase/Protease/Amylase [Librado [place] 8,000 Units Capsule] 4 cap PO TIDMEALS 09/09 [History] Magnesium Oxide 500 mg PO DAILY 09/09/17 [History] Pantoprazole [ProTONIX] 40 mg PO ACBREAKFAST 09/09/17 [History] Phenol [Chloraseptic] 2 sprays PO Q2HR PRN 09/09/17 [History] Phosphorus #1 [K-Phos Neutral Tablet] 500 mg PO BIDMEALS 09/09/17 [History] Sennosides/Docusate Sodium [Senna-Docusate Sodium Tablet] 1 - 2 tab PO BID 09/09 [History] Sertraline [Zoloft] 50 mg PO DAILY 09/09/17 [History] hydrOXYzine HCl [Atarax] 25 mg PO QID PRN 09/09/17 [History] oxyCODONE 5 mg PO Q3HR PRN 09/09/17 [History] Past Medical History HEENT History: Reports: Hard of Hearing, Impaired Vision Cardiovascular History: Reports: Hypertension Gastrointestinal History: Reports: Chronic Constipation, Diverticulosis, GERD, Hemorrhoids, Other (See Below) Other Gastrointestinal History: pancreatic cancer with mets to the transverse colon Genitourinary History: Reports: None Musculoskeletal History: Reports: None, Back Pain, Chronic Hematologic History: Reports: Blood Transfusion(s) Immunologic History: Reports: Immunosuppression Oncologic (Cancer) History: Reports: Breast, Colon, Pancreatic - Infectious Disease History 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, Herpes - Past Surgical History HEENT Surgical History: Reports: Tonsillectomy Other Respiratory Surgeries/Procedures: h/o smoking GI Surgical History: Reports: Cholecystectomy, Colonoscopy, Other (See Below) Other GI Surgeries/Procedures: whipple resection Female Surgical History: Reports: Breast Biopsy, Mastectomy, Tubal Ligation Other Musculoskeletal Surgeries/Procedures:: bunyon surgery Oncologic Surgical History: Reports: Biopsy of Breast, Mastectomy Social & Family History - Tobacco Use Smoking Status *Q: Former Smoker Years of Tobacco use: 30 Packs/Tins Daily: 0.5 Used Tobacco, but Quit: Yes Month Tobacco Last Used: 10 Second Hand Smoke Exposure: No - Caffeine Use Caffeine Use: Reports: None - Recreational Drug Use Recreational Drug Use: No H&P Review of Systems - Review of Systems: Review Of Systems: See Below General: Reports: Chills. Denies: Fever HEENT: Reports: Sore Throat Pulmonary: Reports: No Symptoms Cardiovascular: Reports: No Symptoms Gastrointestinal: Reports: Abdominal Pain, Distension. Denies: Constipation, Diarrhea, Decreased Appetite, Difficulty Swallowing, Mucous in Stool, Nausea, Stool Incontinence, Vomiting Genitourinary: Reports: No Symptoms Musculoskeletal: Reports: No Symptoms Skin: Reports: No Symptoms Psychiatric: Reports: No Symptoms Neurological: Reports: No Symptoms Hematologic/Lymphatic: Reports: Anemia, Easy Bleeding Immunologic: Reports: No Symptoms Exam - Exam Exam: See Below - Exam Quality Assessment: No: Supplemental Oxygen General: Alert, Oriented, 4 HEENT: Mucosa Moist & [place] Neck: Supple, Trachea Midline, 2 Lungs: Clear to Auscultation, Normal Respiratory Effort Cardiovascular: Regular Rate, Regular Rhythm, Normal S1, Normal S2 GI/Abdominal Exam: Normal Bowel Sounds, Non-Tender, Distended (slight distention , no nausea or vomiting. ). No: Guarding, Rigid, Rebound, Tender Rectal (Female) Exam: Deferred Back Exam: No: CVA Tenderness (L), CVA Tenderness (R) Extremities: Normal Inspection, Normal Range of Motion, Non-Tender, No Pedal Edema, Normal Capillary Refill Peripheral Pulses: 2+: Radial (L), Radial (R) Skin: Warm, Dry, Intact Neurological: Cranial Nerves Intact, Reflexes Equal Bilateral Neuro Extensive - Mental Status: Alert, Oriented x3, Normal Mood/Affect, Normal Cognition Neuro Extensive - Motor, Sensory, Reflexes: CN II-XII Intact Psychiatric: Alert, Normal Affect, Normal Mood - Patient Data Result Diagrams: 09/13/17 08:45 09/13/17 08:45 *Q Meaningful Use (ADM) - VTE *Q VTE Criteria *Q: - Stroke *Q Stroke Criteria *Q: - AMI *Q AMI Criteria *Q: Problem List Initiated/Reviewed/Updated: Yes Assessment/Plan Comment:: HISTORY OF PRESENT ILLNESS Shanti who is 71 years old and was transferred from a [facility] to [facility] for swing bed therapy and rehabilitation. She currently has metastatic adenocarcinoma of the pancreas. She had been stressed transferred here from [facility] due to a high-grade SBO which was treated conservatively and self resolved. While in [place] she did have GI bleeding due to tumor involvement of the colon, which required blood transfusions. Because of her weakness, it was decided to discontinue chemotherapy. She has opted to discontinue her chemotherapy of gemcitabine & Abraxaneor and go into hospice and palliative care at home upon some rehabilitation here at [place] in swing bed. Code Status: DNR ___ #1 Metastatic pancreatic cancer, no longer under chemotherapy of gemcitabine & Abraxaneor. #2, Weakness, PT and nutritional c/s. #3, Recent high-grade SBO, conservative treatment, resolved, will monitor closely. Tramadol for pain #4, Anemia, GI bleed, holding xarelto due to recent GI bleed necessitating blood transfusions. #5. Pain mgt, Tramadol, tylenol. Discharge planning. SS/PT and Nutritional Consults, Long discussion with patient/family, They have not fully decided for Hospice/Palliative care at this time. They plan for eventual home, self-care as spouse not available around the clock. Pt desires IV fluids and blood transfusions if needed.
[2017-09-09] MEDS ORDERED: Acetaminophen 325 MG Tab PO PRN (16:55)
[2017-09-09] MEDS ORDERED: Phenol 1.4% Oral Spray 177 ML Bottle MUCMEM PRN (19:01)
[2017-09-09] MEDS ORDERED: hydrOXYzine HCl 25 MG Tab PO PRN (19:01)
[2017-09-09] MEDS ORDERED: Ondansetron 4 MG Tab.DIS PO PRN (19:01)
[2017-09-09] MEDS ORDERED: LIPASE PO SCH (19:15)
[2017-09-09] MEDS ORDERED: PROTEASE PO SCH (19:15)
[2017-09-09] MEDS ORDERED: AMYLASE PO SCH (19:15)
[2017-09-09] MEDS: LORazepam 0.5 MG Tab PO SCH (20:44)
[2017-09-09] MEDS: LIPASE PO SCH (21:00)
[2017-09-09] MEDS: AMYLASE PO SCH (21:00)
[2017-09-09] MEDS: PROTEASE PO SCH (21:00)
[2017-09-10] MEDS: Pantoprazole 40 MG Tab.CR PO SCH (08:14)
[2017-09-10] MEDS: PROTEASE PO SCH (08:16)
[2017-09-10] MEDS: LIPASE PO SCH (08:16)
[2017-09-10] MEDS: Sertraline 50 MG Tab PO SCH (08:16)
[2017-09-10] MEDS: AMYLASE PO SCH (08:16)
[2017-09-10] MEDS: Phosphorus #1 250 MG Tab PO SCH ×2 (08:16→18:05)
[2017-09-10] MEDS: Magnesium Oxide 500 MG Tab PO SCH (08:16)
[2017-09-10] MEDS ORDERED: PANCRELIPASE PO SCH (11:15)
[2017-09-10] MEDS: PANCRELIPASE PO SCH ×2 (12:18→18:06)
[2017-09-10] MEDS ORDERED: PANCRELIPASE PO ONE ×2 (12:18→18:06)
[2017-09-10] MEDS: LORazepam 0.5 MG Tab PO SCH (21:00)
[2017-09-11] MEDS: Magnesium Oxide 500 MG Tab PO SCH (08:07)
[2017-09-11] MEDS: Phosphorus #1 250 MG Tab PO SCH ×2 (08:07→17:55)
[2017-09-11] MEDS: Pantoprazole 40 MG Tab.CR PO SCH (08:07)
[2017-09-11] MEDS: Sertraline 50 MG Tab PO SCH (08:08)
[2017-09-11] MEDS: PANCRELIPASE PO SCH ×3 (08:09→17:55)
[2017-09-11] MEDS ORDERED: PANCRELIPASE PO ONE ×3 (08:09→17:55)
[2017-09-11] MEDS ORDERED: Furosemide 40 MG Tab PO ONE (10:00)
[2017-09-11] MEDS: LORazepam 0.5 MG Tab PO SCH (21:15)
[2017-09-12] MEDS: Sertraline 50 MG Tab PO SCH (08:20)
[2017-09-12] MEDS ORDERED: PANCRELIPASE PO ONE ×3 (08:20→18:06)
[2017-09-12] MEDS: PANCRELIPASE PO SCH ×3 (08:20→18:06)
[2017-09-12] MEDS: Magnesium Oxide 500 MG Tab PO SCH (08:20)
[2017-09-12] MEDS: Phosphorus #1 250 MG Tab PO SCH ×2 (08:20→18:06)
[2017-09-12] MEDS: Pantoprazole 40 MG Tab.CR PO SCH (08:20)
[2017-09-12 09:42] LABS: CHLORIDE,CL 106 mmol/L (98-115); SODIUM,NA 140 mmol/L (136-145)
[2017-09-12] MEDS: Potassium Bicarbonate/Potassium Chloride 25 MEQ Tab.Eff PO SCH (11:07)
[2017-09-12] MEDS: Escitalopram 10 MG Tab PO SCH (11:07)
[2017-09-12] MEDS ORDERED: Potassium Bicarbonate/Potassium Chloride 25 MEQ Tab.Eff PO ONE (20:00)
[2017-09-12] MEDS: LORazepam 0.5 MG Tab PO SCH (20:02)
[2017-09-13] MEDS: Pantoprazole 40 MG Tab.CR PO SCH (08:09)
[2017-09-13] MEDS: Phosphorus #1 250 MG Tab PO SCH ×2 (08:10→18:00)
[2017-09-13] MEDS ORDERED: PANCRELIPASE PO ONE (08:11)
[2017-09-13] MEDS: PANCRELIPASE PO SCH ×3 (08:11→18:00)
[2017-09-13] MEDS: Magnesium Oxide 500 MG Tab PO SCH (08:12)
[2017-09-13] MEDS: Escitalopram 10 MG Tab PO SCH (08:16)
[2017-09-13] MEDS: Potassium Bicarbonate/Potassium Chloride 25 MEQ Tab.Eff PO SCH (08:17)
[2017-09-13 09:07] LABS: CHLORIDE,CL 106 mmol/L (98-115); SODIUM,NA 138 mmol/L (136-145)
--- NOTE | 2017-09-13 09:37 | PN ---
09/13/2017 PATIENT NAME: JEFF STOUT SUBJECTIVE: This is a 71-year-old female patient that was transferred here from [facility] for swing bed status. The patient was sent here for therapy and rehabilitation. The patient was in [place] in the hospital being treated for metastatic adenocarcinoma in the pancreas. She developed a tumor in her colon which ruptured and the patient had GI bleed which required blood transfusions. The patient also had a high-grade small bowel obstruction. She was treated conservatively which did resolve. Due to the patient's GI bleed and weakness, the patient opted to discontinue her chemotherapy and be transferred to [facility] for swing bed and possibly go home with hospice. Today, the patient says she feels very weak. She has no energy. She says she actually feels like foggy, just drowsy. She has been able to eat okay. No fever or chills. OBJECTIVE: VITAL SIGNS: Today, her weight is 127 pounds, temperature is 97.9, pulse is 84, blood pressure is 140/91, respiratory rate is 16, and oxygen saturation on room air is 95%. GENERAL: This is an elderly white female in no acute distress. CARDIAC: Heart tones are distant. Regular rate and rhythm. ABDOMEN: Soft, nontender, and nondistended. Bowel sounds are present x4. LUNGS: Sounds are clear throughout the lung griffin. EXTREMITIES: Minimal pedal edema noted on exam. LABORATORY DATA: The patient's lab work is pending at this time. IMPRESSION AND PLAN: 1. Pancreatic cancer with metastasis. Plan: We will continue the patient on pancreatic supplement four tabs with each meal also with Neutra-Phos b.i.d. with meals. The patient has chosen not to continue with chemotherapy. We will have the patient here to try to build up her strength prior to being going home with hospice. 2. Depression. Plan: The patient was complaining of drowsiness from Zoloft. She refused to take the Zoloft, so we discontinued the Zoloft yesterday. We started on Lexapro 10 mg daily. She did take it this morning. 3. Hypomagnesemia. Plan: Continue with magnesium oxide 500 mg daily. 4. Recent gastrointestinal bleed with small bowel obstruction. Plan: We will continue the patient on Protonix 40 mg in the morning, Zantac 150 mg at bedtime. We are going to hold the patient's Xarelto. We will repeat a CBC today. 5. Hypokalemia. Plan: The patient's potassium level yesterday was low at 2.9. We started her on potassium. She got two doses of potassium chloride 25 mEq effervescent yesterday. She got another dose today. We will recheck a basic metabolic panel today. 6. Pain. Plan: The patient may have tramadol or Tylenol as needed for pain. She states that she is not having any pain. 7. Weakness with fatigue. Plan: We will recheck a CBC today to see if her hemoglobin is low. We will continue with physical therapy, worst for strengthening and rehabilitation. Overall plan: The patient will be here for approximately two weeks for physical therapy and strengthening. At that time, a care conference will be held for discharge planning at that time. /[id number]/MODL
[2017-09-13] MEDS: LORazepam 0.5 MG Tab PO SCH (20:00)
[2017-09-14] MEDS: Pantoprazole 40 MG Tab.CR PO SCH (08:03)
[2017-09-14] MEDS: Magnesium Oxide 500 MG Tab PO SCH (08:03)
[2017-09-14] MEDS: Potassium Bicarbonate/Potassium Chloride 25 MEQ Tab.Eff PO SCH (08:04)
[2017-09-14] MEDS: Phosphorus #1 250 MG Tab PO SCH ×2 (08:05→17:56)
[2017-09-14] MEDS: Escitalopram 10 MG Tab PO SCH (08:05)
[2017-09-14] MEDS: PANCRELIPASE PO SCH ×3 (08:06→17:56)
[2017-09-14] MEDS ORDERED: Furosemide 40 MG/4 ML VIAL IVPUSH ONE (15:00)
[2017-09-14] MEDS ORDERED: Furosemide 40 MG Tab PO ONE (15:19)
[2017-09-14] MEDS: LORazepam 0.5 MG Tab PO SCH (20:07)
[2017-09-15] MEDS: Pantoprazole 40 MG Tab.CR PO SCH (07:43)
[2017-09-15] MEDS: PANCRELIPASE PO SCH ×3 (08:02→18:01)
[2017-09-15] MEDS: Phosphorus #1 250 MG Tab PO SCH ×2 (08:03→18:00)
[2017-09-15] MEDS: Magnesium Oxide 500 MG Tab PO SCH (08:27)
[2017-09-15] MEDS: Escitalopram 10 MG Tab PO SCH (08:27)
[2017-09-15] MEDS: LORazepam 0.5 MG Tab PO SCH (20:29)
[2017-09-16] MEDS: Pantoprazole 40 MG Tab.CR PO SCH (07:41)
[2017-09-16] MEDS: Potassium Chloride 10 MEQ Tab.ER PO SCH (08:11)
[2017-09-16] MEDS: PANCRELIPASE PO SCH ×3 (08:11→17:56)
[2017-09-16] MEDS: Escitalopram 10 MG Tab PO SCH (08:11)
[2017-09-16] MEDS: Magnesium Oxide 500 MG Tab PO SCH (08:11)
[2017-09-16] MEDS: Phosphorus #1 250 MG Tab PO SCH ×2 (08:12→17:56)
[2017-09-16] MEDS ORDERED: Melatonin 3 MG Tab PO SCH (21:00)
[2017-09-17] MEDS: Acetaminophen 325 MG Tab PO PRN ×2 (00:37→20:26)
[2017-09-17] MEDS: Pantoprazole 40 MG Tab.CR PO SCH (07:39)
[2017-09-17] MEDS: Phosphorus #1 250 MG Tab PO SCH ×2 (08:10→18:14)
[2017-09-17] MEDS: PANCRELIPASE PO SCH ×3 (08:11→18:14)
[2017-09-17] MEDS: Magnesium Oxide 500 MG Tab PO SCH (08:13)
[2017-09-17] MEDS: Potassium Chloride 10 MEQ Tab.ER PO SCH (08:13)
[2017-09-17] MEDS: Escitalopram 10 MG Tab PO SCH (08:13)
[2017-09-17] MEDS ORDERED: diphenhydrAMINE 25 MG Cap PO PRN (09:51)
[2017-09-17] MEDS: traMADol 50 MG Tab PO PRN (23:41)
[2017-09-18] MEDS: Pantoprazole 40 MG Tab.CR PO SCH (07:51)
[2017-09-18] MEDS: Phosphorus #1 250 MG Tab PO SCH ×2 (08:09→18:09)
[2017-09-18] MEDS: PANCRELIPASE PO SCH ×3 (08:09→18:08)
[2017-09-18] MEDS: Magnesium Oxide 500 MG Tab PO SCH (08:10)
[2017-09-18] MEDS: Potassium Chloride 10 MEQ Tab.ER PO SCH (08:10)
[2017-09-18] MEDS: Escitalopram 10 MG Tab PO SCH (08:10)
[2017-09-18] MEDS: Melatonin 3 MG Tab PO PRN (21:04)
[2017-09-19] MEDS: Acetaminophen 325 MG Tab PO PRN (02:42)
[2017-09-19] MEDS: Pantoprazole 40 MG Tab.CR PO SCH (07:50)
[2017-09-19] MEDS: PANCRELIPASE PO SCH ×3 (08:03→18:07)
[2017-09-19] MEDS: Phosphorus #1 250 MG Tab PO SCH ×2 (08:04→18:07)
[2017-09-19] MEDS: Potassium Chloride 10 MEQ Tab.ER PO SCH (08:05)
[2017-09-19] MEDS: Escitalopram 10 MG Tab PO SCH (08:05)
[2017-09-19] MEDS: Magnesium Oxide 500 MG Tab PO SCH (08:05)
[2017-09-19] MEDS ORDERED: Mirtazapine 15 MG Tab PO PRN (17:26)
[2017-09-19] MEDS: Prochlorperazine 5 MG Tab PO PRN (18:09)
[2017-09-20] MEDS: Acetaminophen 325 MG Tab PO PRN ×3 (00:10→23:10)
[2017-09-20] MEDS: PANCRELIPASE PO SCH ×3 (07:53→18:05)
[2017-09-20] MEDS: Pantoprazole 40 MG Tab.CR PO SCH (07:53)
[2017-09-20] MEDS: Phosphorus #1 250 MG Tab PO SCH ×2 (07:55→18:05)
[2017-09-20] MEDS: Magnesium Oxide 500 MG Tab PO SCH (09:03)
[2017-09-20] MEDS: Potassium Chloride 10 MEQ Tab.ER PO SCH (09:04)
[2017-09-20] MEDS: Escitalopram 10 MG Tab PO SCH (09:04)
--- NOTE | 2017-09-20 12:00 | PCM.PN ---
- General Info Date of Service: 09/20/17 Subjective Update: Ms. Martinez reports feeling tired this morning. She didn't get to sleep until around 0300 last night and complains of insomnia as a longstanding problem for her, but for which her prior medication regimen did not cause the daytime "hangover" which she has felt lately. Was started on mirtazepine last night. Also complains of dysuria and burning with urination this morning, which is new for her. Feels she is becoming stronger with physical therapy. Denies fever, chills, nausea, vomiting, flank pain, abdominal pain, diarrhea, GI bleeding. No nursing concerns. - Patient Data Vitals - Most Recent: Last Vital Signs Temp 36.2 C 09/20/17 06:16 Pulse 80 09/20/17 08:30 Resp 18 09/20/17 06:16 BP 142/87 H 09/20/17 06:16 Pulse Ox 97 09/20/17 08:30 Weight - Most Recent: 51.426 kg I&O - Last 24 Hours: Intake & Output 09/19/17 09/20/17 09/20/17 22:59 06:59 14:59 Intake Total 120 50 Balance 120 50 Lab Results Last 24 Hours: Laboratory Results - last 24 hr 09/20/17 Range/Units 10:40 Specimen Type Urinvoid Urine Color Yellow (YELLOW) Urine Appearance Cloudy H (CLEAR) Urine pH 7.5 (5.0-9.0) Ur Specific [place] 1.015 (1.005-1.030) Urine Protein Negative (NEGATIVE) mg/dL Urine Glucose (UA) Negative (NEGATIVE) mg/dL Urine Ketones Negative (NEGATIVE) mg/dL Urine Occult Blood Negative (NEGATIVE) Urine Nitrite Negative (NEGATIVE) Urine Bilirubin Negative (NEGATIVE) Urine Urobilinogen 1.0 (0.2-1.0) E.U./dL Ur Leukocyte Esterase Small H (NEGATIVE) Urine RBC 0-5 /HPF Urine WBC 50-75 H /HPF Ur Epithelial Cells Moderate H /LPF Urine Bacteria Many H (NONE TO FEW) /HPF Med Orders - Current: Current Medications Acetaminophen (Tylenol) 650 mg PO Q6H PRN PRN Reason: Pain (mild 1-3) Last Admin: 09/20/17 00:10 Dose: 650 mg Lipase/Protease/Amylase (Librado Shelby) 4 each PO TIDMEALS [facility] Last Admin: 09/20/17 07:53 Dose: 4 each Lipase/Protease/Amylase (Librado Shelby) 2 each PO SEECOMMENT PRN PRN Reason: digestive aid Diphenhydramine HCl (Benadryl) 50 mg PO BEDTIME PRN PRN Reason: Insomnia Last Admin: 09/17/17 20:26 Dose: 50 mg Escitalopram Oxalate (Lexapro) 10 mg PO DAILY [facility] Last Admin: 09/20/17 09:04 Dose: 10 mg Hydroxyzine HCl (Atarax) 25 mg PO QID PRN PRN Reason: Itching Magnesium Oxide (Magnesium Oxide) 500 mg PO DAILY [facility] Last Admin: 09/20/17 09:03 Dose: 500 mg Melatonin (Melatonin) 6 mg PO BEDTIME PRN PRN Reason: Insomnia Last Admin: 09/18/17 21:04 Dose: 6 mg Mirtazapine (Remeron) 15 mg PO BEDTIME [facility] Ondansetron HCl (Zofran Odt) 8 mg PO TID PRN PRN Reason: Nausea or vomitting Pantoprazole Sodium (Protonix) 40 mg PO ACBREAKFAST [facility] Last Admin: 09/20/17 07:53 Dose: 40 mg Phenol/Menthol (Chloraseptic Throat Beryl) 0 ml MUCMEM Q2H PRN PRN Reason: Sore Throat Potassium Chloride (Klor-Con 10) 10 meq PO DAILY [facility] Last Admin: 09/20/17 09:04 Dose: 10 meq Prochlorperazine Maleate (Compazine) 10 mg PO QID PRN PRN Reason: Nausea or vomitting Last Admin: 09/19/17 18:09 Dose: 10 mg Ranitidine HCl (Zantac) 150 mg PO BEDTIME [facility] Last Admin: 09/19/17 21:14 Dose: 150 mg Senna/Docusate Sodium (Senna Plus) 1 - 2 tab PO BID PRN PRN Reason: Constipation Last Admin: 09/19/17 21:14 Dose: 1 tab Sodium Phosphate (Neutra-Phos) 500 mg PO BIDMEALS [facility] Last Admin: 09/20/17 07:55 Dose: 500 mg Tramadol HCl (Ultram) 50 mg PO Q4H PRN PRN Reason: Pain Last Admin: 09/17/17 23:41 Dose: 50 mg Trimethoprim/Sulfamethoxazole (Septra Ds) 1 tab PO BID KATELYN Stop: 09/23/17 09:01 Discontinued Medications Acetaminophen (Tylenol) 650 mg PO Q6H PRN PRN Reason: Pain (mild 1-3) Last Admin: 09/09/17 17:11 Dose: 650 mg Lipase/Protease/Amylase (Librado Shelby) 4 each PO .STK-MED ONE Stop: 09/10/17 12:19 Lipase/Protease/Amylase (Librado Shelby) 4 each PO .STK-MED ONE Stop: 09/10/17 18:07 Lipase/Protease/Amylase (Librado Shelby) 4 each PO .STK-MED ONE Stop: 09/11/17 08:10 Lipase/Protease/Amylase (Librado Shelby) 4 each PO .STK-MED ONE Stop: 09/11/17 12:09 Lipase/Protease/Amylase (Librado Shelby) 4 each PO .STK-MED ONE Stop: 09/11/17 17:56 Lipase/Protease/Amylase (Librado Shelby) 4 each PO .STK-MED ONE Stop: 09/12/17 08:21 Lipase/Protease/Amylase (Librado Shelby) 4 each PO .STK-MED ONE Stop: 09/12/17 11:10 Lipase/Protease/Amylase (Librado Shelby) 4 each PO .STK-MED ONE Stop: 09/12/17 18:07 Lipase/Protease/Amylase (Librado Shelby) 4 each PO .STK-MED ONE Stop: 09/13/17 08:12 Furosemide (Lasix) 40 mg PO ONETIME ONE Stop: 09/11/17 10:01 Last Admin: 09/11/17 10:11 Dose: 40 mg Furosemide (Lasix) 20 mg IVPUSH NOW ONE Stop: 09/14/17 15:01 Last Admin: 09/14/17 15:22 Dose: Not Given Furosemide (Lasix) 40 mg PO ONETIME ONE Stop: 09/14/17 15:20 Last Admin: 09/14/17 15:39 Dose: 40 mg Lorazepam (Ativan) 0.5 mg PO BEDTIME KATELYN Last Admin: 09/15/17 20:29 Dose: 0.5 mg Melatonin (Melatonin) 3 mg PO BEDTIME [facility] Last Admin: 09/16/17 20:38 Dose: 3 mg Mirtazapine (Remeron) 15 mg PO BEDTIME PRN PRN Reason: Insomnia Last Admin: 09/19/17 21:14 Dose: 15 mg Nf (Lipase/Protease/Amylase [Librado Shelby 8,000 Units Capsule] *Own Med* 2 cap PO SEECOMMENT [facility] Nf(Lipase/Protease/Amylase [Librado Shelby 8,000 Units Cap]*Own Med* 4 cap PO TIDMEALS [facility] Last Admin: 09/10/17 08:16 Dose: 4 cap Nf[Librado Shelby 8, (000 Units Cap]) 4 cap PO TIDMEALS [facility] Last Admin: 09/13/17 08:11 Dose: 4 cap NfLibrado Shelby 8, (000 Units Capsule) 2 cap PO SEECOMMENT [facility] Potassium Bicarb/Potassium Chloride (Potassium Chloride, Effervescent) 25 meq PO DAILY [facility] Last Admin: 09/14/17 08:04 Dose: 25 meq Potassium Bicarb/Potassium Chloride (Potassium Chloride, Effervescent) 25 meq PO ONETIME ONE Stop: 09/12/17 20:01 Last Admin: 09/12/17 19:58 Dose: 25 meq Ranitidine HCl (Zantac) 150 mg PO ACBREAKFAST [facility] Last Admin: 09/12/17 08:20 Dose: 150 mg Senna/Docusate Sodium (Senna Plus) 1 tab PO ONETIME ONE Stop: 09/09/17 14:31 Last Admin: 09/09/17 14:20 Dose: 1 tab Senna/Docusate Sodium (Senna Plus) 1 - 2 tab PO BID [facility] Last Admin: 09/16/17 08:13 Dose: Not Given Sertraline HCl (Zoloft) 50 mg PO DAILY [facility] Last Admin: 09/12/17 08:20 Dose: Not Given - Exam Physical Findings Comments:: GENERAL: Elderly white female sitting in bedside chair in no acute distress. HEENT: Mucous membranes moist. NECK: Supple, no masses. CV: Regular rate and rhythm, no murmurs, rubs, or gallops. 2+ radial pulses. PULMONARY: Normal effort, clear to auscultation bilaterally, no wheezes, rales, or rhonchi. ABDOMEN: Positive bowel sounds, soft, nontender, no CVA tenderness, nondistended. EXTREMITIES: No edema, cyanosis, or clubbing. MUSCULOSKELETAL: Moves all extremities well. NEUROLOGICAL: No obvious deficits. DERMATOLOGIC: No rashes or suspicious lesions in exposed areas. PSYCHIATRIC: Alert, interactive, appropriate affect. - Problem List Review Problem List Initiated/Reviewed/Updated: Yes - My Orders Last 24 Hours: My Active Orders 09/20/17 11:18 CULTURE URINE [RM] Routine 09/20/17 21:00 Mirtazapine [Remeron] 15 mg PO BEDTIME Sulfamethoxazole/Trimethoprim [Septra DS] 1 tab PO BID - Assessment Assessment:: 71yoF with history notable for adenocarcinoma of the pancreas and recent GI bleed requiring transfusions and SBO due to tumor involvement of the colon admitted for swing bed therapy for rehabilitation from [facility] due to deconditioning on 09/09/17. She has been participating with physical therapy and feeling that her strength is improving. # Deconditioning: Continue physical therapy. # Dysuria: UA with +leukocyte esterase and many bacteria. Will start TMP-SMX. Await culture results and discontinue if negative. # Metastatic adenocarcinoma of pancreas: She has previously discontinued chemotherapy and is considering palliative and/or hospice care following rehabilitation for strengthening. Continue supplements, Tylenol prn, and Tramadol prn. # Recent GI bleed requiring transfusions and SBO: Continue PPI and H2B regimen. Holding anticoagulants. # Depression and insomnia: Chronic with acute worsening likely due to clinical decline. Continue escitalopram and mirtazepine as initiated yesterday in addition to melatonin and/or diphenhydramine prn. Hospitalization details: # FEN: No IVF. Electrolytes normal on last check. Regular diet. # PPX: No DVT ppx. # Code status: DNR/DNI. # Disposition: Continue in swing bed status. Care conference planned for 09/24 for further disposition planning.
[2017-09-20] MEDS: Mirtazapine 15 MG Tab PO SCH ×2 (19:39→19:59)
[2017-09-20] MEDS: Sulfamethoxazole/Trimethoprim 800-160 MG Tab PO SCH ×2 (19:39→19:59)
[2017-09-20] MEDS: Melatonin 3 MG Tab PO PRN (23:10)
[2017-09-21] MEDS: Pantoprazole 40 MG Tab.CR PO SCH (07:38)
[2017-09-21] MEDS: PANCRELIPASE PO SCH ×3 (08:26→18:07)
[2017-09-21] MEDS: Potassium Chloride 10 MEQ Tab.ER PO SCH (08:26)
[2017-09-21] MEDS: Magnesium Oxide 500 MG Tab PO SCH (08:27)
[2017-09-21] MEDS: Phosphorus #1 250 MG Tab PO SCH ×2 (08:27→18:07)
[2017-09-21] MEDS: Sulfamethoxazole/Trimethoprim 800-160 MG Tab PO SCH ×2 (08:27→18:07)
[2017-09-21] MEDS: Escitalopram 10 MG Tab PO SCH (08:27)
[2017-09-21] MEDS: Prochlorperazine 5 MG Tab PO PRN (11:45)
[2017-09-21] MEDS: Acetaminophen 325 MG Tab PO PRN (17:19)
[2017-09-21] MEDS: Mirtazapine 15 MG Tab PO SCH (21:17)
[2017-09-21] MEDS: traMADol 50 MG Tab PO PRN (21:23)
[2017-09-22] MEDS: Sulfamethoxazole/Trimethoprim 800-160 MG Tab PO SCH ×2 (06:10→18:16)
[2017-09-22] MEDS: Pantoprazole 40 MG Tab.CR PO SCH (07:28)
[2017-09-22] MEDS: Potassium Chloride 10 MEQ Tab.ER PO SCH (08:01)
[2017-09-22] MEDS: Phosphorus #1 250 MG Tab PO SCH ×2 (08:01→18:15)
[2017-09-22] MEDS: Magnesium Oxide 500 MG Tab PO SCH (08:01)
[2017-09-22] MEDS: PANCRELIPASE PO SCH ×3 (08:01→18:15)
[2017-09-22] MEDS: Escitalopram 10 MG Tab PO SCH (08:01)
[2017-09-22] MEDS: Prochlorperazine 5 MG Tab PO PRN (11:08)
[2017-09-22] MEDS: Melatonin 3 MG Tab PO PRN (20:27)
[2017-09-22] MEDS: Mirtazapine 15 MG Tab PO SCH (20:31)
[2017-09-23] MEDS: Acetaminophen 325 MG Tab PO PRN (03:47)
[2017-09-23] MEDS: Sulfamethoxazole/Trimethoprim 800-160 MG Tab PO SCH (06:16)
[2017-09-23] MEDS: PANCRELIPASE PO SCH ×3 (08:00→17:55)
[2017-09-23] MEDS: Pantoprazole 40 MG Tab.CR PO SCH (08:00)
[2017-09-23] MEDS: Phosphorus #1 250 MG Tab PO SCH ×2 (08:00→17:55)
[2017-09-23] MEDS: Escitalopram 10 MG Tab PO SCH (08:02)
[2017-09-23] MEDS: Magnesium Oxide 500 MG Tab PO SCH (08:02)
[2017-09-23] MEDS: Potassium Chloride 10 MEQ Tab.ER PO SCH (08:02)
[2017-09-23] MEDS: PANCRELIPASE PO PRN (14:56)
[2017-09-23] MEDS: Melatonin 3 MG Tab PO PRN (20:39)
[2017-09-23] MEDS: Mirtazapine 15 MG Tab PO SCH (20:42)
[2017-09-24] MEDS: Acetaminophen 325 MG Tab PO PRN (03:29)
[2017-09-24] MEDS: Phosphorus #1 250 MG Tab PO SCH ×2 (08:09→18:01)
[2017-09-24] MEDS: Pantoprazole 40 MG Tab.CR PO SCH (08:09)
[2017-09-24] MEDS: PANCRELIPASE PO SCH ×3 (08:09→18:01)
[2017-09-24] MEDS: Potassium Chloride 10 MEQ Tab.ER PO SCH (08:10)
[2017-09-24] MEDS: Escitalopram 10 MG Tab PO SCH (08:10)
[2017-09-24] MEDS: Magnesium Oxide 500 MG Tab PO SCH (08:10)
[2017-09-24] MEDS: PANCRELIPASE PO PRN ×2 (14:55→20:32)
[2017-09-24] MEDS: Melatonin 3 MG Tab PO PRN (20:34)
[2017-09-24] MEDS: Mirtazapine 15 MG Tab PO SCH (21:14)
[2017-09-24] MEDS: Nitrofurantoin Monohydrate/Macrocrystalline 100 MG Cap PO SCH (21:14)
[2017-09-25] MEDS: Acetaminophen 325 MG Tab PO PRN ×2 (02:25→21:14)
[2017-09-25] MEDS: Pantoprazole 40 MG Tab.CR PO SCH (08:29)
[2017-09-25] MEDS: Nitrofurantoin Monohydrate/Macrocrystalline 100 MG Cap PO SCH (08:29)
[2017-09-25] MEDS: Phosphorus #1 250 MG Tab PO SCH ×2 (08:29→17:56)
[2017-09-25] MEDS: Magnesium Oxide 500 MG Tab PO SCH (08:29)
[2017-09-25] MEDS: Potassium Chloride 10 MEQ Tab.ER PO SCH (08:29)
[2017-09-25] MEDS: PANCRELIPASE PO SCH ×3 (08:30→17:55)
[2017-09-25] MEDS: Escitalopram 10 MG Tab PO SCH (08:30)
[2017-09-25] MEDS: PANCRELIPASE PO PRN ×2 (15:10→21:15)
[2017-09-25] MEDS: Melatonin 3 MG Tab PO PRN (21:13)
[2017-09-25] MEDS: Mirtazapine 15 MG Tab PO SCH (21:16)
[2017-09-26] MEDS: Acetaminophen 325 MG Tab PO PRN ×2 (02:07→20:48)
[2017-09-26] MEDS: Magnesium Oxide 500 MG Tab PO SCH (08:23)
[2017-09-26] MEDS: Phosphorus #1 250 MG Tab PO SCH ×2 (08:23→17:52)
[2017-09-26] MEDS: PANCRELIPASE PO SCH ×3 (08:23→17:52)
[2017-09-26] MEDS: Pantoprazole 40 MG Tab.CR PO SCH (08:23)
[2017-09-26] MEDS: Potassium Chloride 10 MEQ Tab.ER PO SCH (08:23)
[2017-09-26] MEDS: Escitalopram 10 MG Tab PO SCH (08:23)
[2017-09-26] MEDS: PANCRELIPASE PO PRN ×2 (14:55→20:30)
[2017-09-26] MEDS: Melatonin 3 MG Tab PO PRN (20:48)
[2017-09-26] MEDS: Mirtazapine 15 MG Tab PO SCH (21:16)
[2017-09-27] MEDS: Acetaminophen 325 MG Tab PO PRN (02:00)
[2017-09-27 06:37] VITALS: BP 114/71
[2017-09-27] MEDS: Pantoprazole 40 MG Tab.CR PO SCH (07:57)
[2017-09-27] MEDS: Phosphorus #1 250 MG Tab PO SCH (07:58)
[2017-09-27] MEDS: PANCRELIPASE PO SCH ×2 (07:58→12:12)
[2017-09-27] MEDS: Magnesium Oxide 500 MG Tab PO SCH (07:59)
[2017-09-27] MEDS: Escitalopram 10 MG Tab PO SCH (07:59)
[2017-09-27] MEDS: Potassium Chloride 10 MEQ Tab.ER PO SCH (07:59)
[2017-09-27] MEDS: PANCRELIPASE PO PRN (15:06)
--- NOTE | 2017-09-28 09:50 | DISCH ---
The patient was admitted in swing bed on 09/09/2017 and discharged from swing bed on 09/27/2017. FINAL DIAGNOSES: 1. Deconditioning, improved however not ptimal. 2. Dysuria, resolved. 3. Hypokalemia, resolved. Other chronic medical conditions: 1. Metastatic adenocarcinoma of the pancreas, recently discontinued chemotherapy because she is considering palliative care. 2. Recent GI bleed, requiring transfusion and small bowel obstruction that resolved, holding anticoagulants. 3. Depression, seems to be stable now, increased in Lexapro. 4. Insomnia, improved. BRIEF HISTORY: This 71-year-old female with notable history of adenocarcinoma of the pancreas, recent GI bleed requiring transfusions due to tumor involvement of the colon, she was admitted in [facility] for swing bed for rehabilitation. She was quite deconditioned when she was discharged from the [facility] in [place]. She has been participating in physical therapy and feeling that her strength is pretty much optimized. She is planning on being discharged today. HOSPITAL COURSE: Hospital course went fairly well. She was significantly deconditioned. She continued physical therapy. She met her goals. We did start Bactrim on her due to dysuria. She had some mild leukocyte esterase with so many bacteria. For her pain, she was given Tylenol and tramadol. She had no complications for any bowel obstruction. She did lose significant weight this past few weeks; however, her diet was picking up considerably on discharge. She had no vomiting. No nausea. We held anticoagulants due to history of GI bleed requiring transfusions. The patient is a DNR. LABORATORY DATA: Most recent labs dated 09/13/2017, hemoglobin 9.8, hematocrit 31.2. Sodium 138, potassium 4.1, BUN 9, creatinine 0.57, calcium 8.0. She did have potassium supplementation during her hospital stay due to hypokalemia. DISCHARGE MEDICATIONS: The patient can continue on all home medications previously. New medications: Lexapro increased to 10 mg p.o. daily. DISPOSITION: The patient will be discharged from the hospital. She will follow up with myself next week. She has been given specific instructions for reporting any nausea, vomiting, decrease in weight, decrease appetite, or fever or any abdominal pain or obstruction symptoms. Upon discharge this was a [id number] encounter for home health services. Patient will require physical therapy occupational therapy therapy and nursing to develop in-home therapy program to assist her With her strength and endurance due to severe weakness exacerbated by extreme weight loss recently. Patient is homebound due to decreased strength and endurance due to debilitating fatigue due to progressive cancer. /[id number]/MODL MTDD
== END 2017-09-27 15:45 | disposition home or self-care (01) | DRG 948 ==
LOC: KA.MS 13:25
PROVIDERS: ADMIT Nurse Practitioner Family; ATTEND Nurse Practitioner Family
DX: R53.1 Weakness (principal); C78.5 Secondary malignant neoplasm of large intestine and rectum; C78.89 Secondary malignant neoplasm of other digestive organs; I10 Essential (primary) hypertension; D63.0 Anemia in neoplastic disease; E83.42 Hypomagnesemia; R30.0 Dysuria; E87.6 Hypokalemia; G47.00 Insomnia, unspecified; F32.9 Major depressive disorder, single episode, unspecified; Z66 Do not resuscitate; Z88.5 Allergy status to narcotic agent; Z79.899 Other long term (current) drug therapy; Z85.3 Personal history of malignant neoplasm of breast; Z87.891 Personal history of nicotine dependence; Z51.5 Encounter for palliative care; Z87.19 Personal history of other diseases of the digestive system
CPT/HCPCS: 36415; 80048; 81001; 85025; 87086; 87088; 87186; 97110-GP; 97162-GP; 97530-GP; A9270-GY; Q0164

== ENCOUNTER 2018-08-12 22:52 | Emergency (ER) | payer MEDICARE, BC ==
[2018-08-12] MEDS ORDERED: Ondansetron 4 MG/2 ML SDV ONE (23:31)
[2018-08-12] MEDS ORDERED: Ondansetron 4 MG/2 ML SDV IVPUSH ONE (23:39)
[2018-08-12 23:57] LABS: ANION GAP 13.4 mmol/L (5-15); CHLORIDE,CL 104 mmol/L (98-115); SODIUM,NA 141 mmol/L (136-145)
--- NOTE | 2018-08-13 | EDM.PDOC ---
ED HPI GENERAL MEDICAL PROBLEM - General Chief Complaint: Abdominal Pain Stated Complaint: abdominal pain Time Seen by Provider: 08/12/18 23:38 Source of Information: Reports: Patient, Significant Other History Limitations: Reports: No Limitations - History of Present Illness INITIAL COMMENTS - FREE TEXT/NARRATIVE: Patient presents with abdominal pain that started this evening as well as nausea for the past couple days. She also is concerned she may be developing bowel obstruction as she has had three times before secondary to metastatic pancreatic cancer. The last was a year ago which self resolved after she was transferred to [place]. Three years ago she had the Whipple procedure removing most of her pancreas and a year ago stopped chemotherapy. Ever since her surgery her bowel movements have been smaller and more frequent; this continues and she has passed stool several times today most recently 2.5 hours ago. - Related Data Allergies Allergy/AdvReac Type Severity Reaction Status Date / Time hydromorphone HCl Allergy Confusion Verified 08/12/18 22:53 [From Dilaudid] morphine Allergy Confusion Verified 08/12/18 22:53 Home Meds: Home Meds Acetaminophen 650 mg PO Q6HR PRN 05/03/17 [History] Ondansetron [Zofran Odt] 8 mg PO TID PRN 05/03/17 [History] Prochlorperazine [Compazine] 10 mg PO QID PRN 05/03/17 [History] LORazepam 0.5 mg PO BEDTIME 07/07/17 [History] Ranitidine [Zantac] 150 mg PO BEDTIME 07/07/17 [History] Lipase/Protease/Amylase [Librado Shelby 8,000 Unit Capsule] 2 cap PO WITHSNACKS 12/25 [History] Lipase/Protease/Amylase [Librado Shelby 8,000 Unit Capsule] 4 cap PO TIDMEALS [History] Magnesium Oxide 500 mg PO DAILY 09/09/17 [History] Pantoprazole [ProTONIX] 40 mg PO ACBREAKFAST 09/09/17 [History] Phenol [Chloraseptic] 2 sprays PO Q2HR PRN 09/09/17 [History] Sennosides/Docusate Sodium [Senna-Docusate Sodium Tablet] 1 - 2 tab PO BID 09/09 [History] Sertraline [Zoloft] 50 mg PO DAILY 09/09/17 [History] hydrOXYzine HCl [Atarax] 25 mg PO QID PRN 09/09/17 [History] oxyCODONE 5 mg PO Q3HR PRN 09/09/17 [History] Escitalopram [Lexapro] 10 mg PO DAILY #30 tablet 09/27/17 [Rx] Mirtazapine [Remeron] 15 mg PO BEDTIME #30 tablet 09/27/17 [Rx] Ondansetron [Zofran ODT] 8 mg PO TID PRN #60 tab.dis 09/27/17 [Rx] Prochlorperazine [Compazine] 10 mg PO QID PRN #60 tablet 09/27/17 [Rx] Sod Phos Di, [place]/K Phos [place] [Av-Phos 250 Neutral Tablet] 500 mg PO BID #60 tablet 09/27/17 [Rx] Past Medical History HEENT History: Reports: Hard of Hearing, Impaired Vision Cardiovascular History: Reports: Hypertension Gastrointestinal History: Reports: Chronic Constipation, Diverticulosis, GERD, Hemorrhoids, Other (See Below) Other Gastrointestinal History: pancreatic cancer with mets to the transverse colon Genitourinary History: Reports: None Musculoskeletal History: Reports: None, Back Pain, Chronic Hematologic History: Reports: Blood Transfusion(s) Immunologic History: Reports: Immunosuppression Oncologic (Cancer) History: Reports: Breast, Colon, Pancreatic - Infectious Disease History 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, Herpes - Past Surgical History HEENT Surgical History: Reports: Tonsillectomy Other Respiratory Surgeries/Procedures: h/o smoking GI Surgical History: Reports: Cholecystectomy, Colonoscopy, Other (See Below) Other GI Surgeries/Procedures: whipple resection Female Surgical History: Reports: Breast Biopsy, Mastectomy, Tubal Ligation Other Musculoskeletal Surgeries/Procedures:: bunyon surgery Oncologic Surgical History: Reports: Biopsy of Breast, Mastectomy Social & Family History - Caffeine Use Caffeine Use: Reports: None ED ROS GENERAL - Review of Systems Review Of Systems: See Below Constitutional: Denies: Fever, Chills HEENT: Reports: No Symptoms Respiratory: Reports: No Symptoms Cardiovascular: Denies: Chest Pain, Syncope Endocrine: Reports: No Symptoms GI/Abdominal: Reports: Abdominal Pain, Nausea. Denies: Diarrhea, Vomiting : Denies: Dysuria, Flank Pain, Frequency Musculoskeletal: Reports: No Symptoms Skin: Reports: No Symptoms Neurological: Reports: No Symptoms Psychiatric: Reports: Anxiety. Denies: Agitation, Confusion Hematologic/Lymphatic: Denies: Anemia ED EXAM, GI/ABD - Physical Exam Exam: See Below Exam Limited By: No Limitations General Appearance: Alert, WD/WN, No Apparent Distress Eyes: Bilateral: Normal Appearance, EOMI Ears: Normal External Exam, Hearing Grossly Normal Nose: Normal Inspection, No Blood Throat/Mouth: Normal Inspection, Normal Lips, Normal Voice, No Airway Compromise Head: Atraumatic, Normocephalic Neck: Normal Inspection, Full Range of Motion Respiratory/Chest: No Respiratory Distress, Lungs Clear, Normal Breath Sounds, No Accessory Muscle Use Cardiovascular: Regular Rate, Rhythm, No Murmur GI/Abdominal Exam: Normal Bowel Sounds, Soft, Non-Tender, No Organomegaly, No Distention Back Exam: Normal Inspection, Full Range of Motion. No: CVA Tenderness (L), CVA Tenderness (R) Extremities: Normal Inspection, Normal Range of Motion, No Pedal Edema Neurological: Alert, Oriented, Normal Cognition, No Motor/Sensory Deficits Psychiatric: Normal Affect, Normal Mood Skin Exam: Warm, Dry, Intact, Normal Color, No Rash Course - Vital Signs Last Recorded V/S: Last Vital Signs Temp 98.2 F 08/12/18 23:52 Pulse 93 08/12/18 23:52 Resp 20 08/12/18 23:52 BP 153/85 H 08/12/18 23:52 Pulse Ox 100 08/12/18 23:52 - Orders/Labs/Meds Orders: Active Orders 24 hr Category Date Time Status Abdomen Pelvis w Cont [CT] Stat Exams 08/12/18 23:06 Ordered Labs: Laboratory Tests 08/12/18 08/12/18 08/13/18 Range/Units 23:20 23:20 02:00 WBC 5.93 (5.00-10.00) 10^3/uL RBC 3.90 (3.80-5.50) 10^6/uL Hgb 12.9 (12.0-16.0) g/dL Hct 38.6 (37.0-47.0) % MCV 99.0 H D (82.0-92.0) fL MCH 33.1 H (27.0-31.0) pg MCHC 33.4 (32.0-36.0) g/dL RDW 12.9 (11.5-14.5) % Plt Count 227 (150-400) 10^3/uL MPV 8.3 (7.4-10.4) fL Immature Gran % (Auto) 0.2 (0.0-5.0) % Neut % (Auto) 71.4 H (50.0-70.0) % Lymph % (Auto) 20.9 (20.0-40.0) % [place] % (Auto) 5.7 (2.0-8.0) % Eos % (Auto) 1.5 (1.0-3.0) % Baso % (Auto) 0.3 (0.0-1.0) % Immature Gran # (Auto) 0.01 (0.00-0.50) 10^3/uL Neut # (Auto) 4.23 (2.50-7.00) 10^3/uL Lymph # (Auto) 1.24 (1.00-4.00) 10^3/uL [place] # (Auto) 0.34 (0.10-0.80) 10^3/uL Eos # (Auto) 0.09 L (0.10-0.30) 10^3/uL Baso # (Auto) 0.02 (0.00-0.10) 10^3/uL Sodium 141 (136-145) mmol/L Potassium 3.4 (3.3-5.3) mmol/L Chloride 104 (98-115) mmol/L Carbon Dioxide 27.0 (21.0-32.0) mmol/L Anion Gap 13.4 (5-15) mmol/L BUN 20 (6-25) mg/dL Creatinine 0.72 (0.51-1.17) mg/dL Est Cr Clr Drug Dosing 65.42 mL/min Estimated GFR (MDRD) > 60 mL/min Glucose 158 mg/dL Calcium 9.7 D (8.7-10.3) mg/dL Total Bilirubin 0.3 (0.2-1.0) mg/dL AST 44 H (15-37) U/L ALT 64 (12-78) U/L Alkaline Phosphatase 259 H (46-116) IU/L Total Protein 7.2 (6.4-8.2) g/dL Albumin 3.89 (3.00-4.80) g/dL Lipase 33 L (73-393) U/L Specimen Type Urinvoid Urine Color Yellow (YELLOW) Urine Appearance Slightly cloudy H (CLEAR) Urine pH >= 9.0 (5.0-9.0) Ur Specific [place] 1.010 (1.005-1.030) Urine Protein Negative (NEGATIVE) mg/dL Urine Glucose (UA) Negative (NEGATIVE) mg/dL Urine Ketones Trace H (NEGATIVE) mg/dL Urine Occult Blood Trace-intact H (NEGATIVE) Urine Nitrite Negative (NEGATIVE) Urine Bilirubin Negative (NEGATIVE) Urine Urobilinogen 0.2 (0.2-1.0) E.U./dL Ur Leukocyte Esterase Negative (NEGATIVE) Urine RBC 5-10 H /HPF Urine WBC 5-10 H /HPF Ur Epithelial Cells Moderate H /LPF Urine Bacteria Few (NONE TO FEW) /HPF Meds: Medications Discontinued Medications Generic Name Dose Route Start Last Admin Trade Name Freq PRN Reason Stop Dose Admin Ketorolac Tromethamine 30 mg 08/13/18 00:02 08/13/18 00:15 Toradol IVPUSH 08/13/18 00:03 30 mg ONETIME ONE Administration Lidocaine HCl Confirm 08/13/18 00:22 Xylocaine 1% Administered 08/13/18 00:23 Dose 20 ml .ROUTE .STK-MED ONE Ondansetron HCl Confirm 08/12/18 23:31 08/12/18 23:40 Zofran Administered 08/12/18 23:32 4 mg Dose Administration 4 mg .ROUTE .STK-MED ONE Ondansetron HCl 4 mg 08/12/18 23:39 08/12/18 23:41 Zofran IVPUSH 08/12/18 23:40 Not Given ONETIME ONE Ondansetron HCl 4 mg 08/13/18 00:02 08/13/18 00:16 Zofran IVPUSH 08/13/18 00:03 4 mg ONETIME ONE Administration - Re-Assessments/Exams Free Text/Narrative Re-Assessment/Exam: 08/13/18 00:16 Patient vomited and this decreased the pain in the epigastrium and chest but the pain she has generally in the low and mid abdomen is unchanged. This feels similar to previous bowel obstructions. She is hesitant to let us try another IV as she has had problems with IV access due to her breast cancer, etc. Will see if anesthesia is available. 08/13/18 03:01 CT shows moderate to high-grade right upper quadrant small bowel obstruction. I discussed this with patient and her who decide to go to [place] in [place]. I discussed case with Dr. Jay (hospitalist) who accepted for transfer. Patient has been more comfortable with the Toradol and Zofran on board. Patient discharged to transfer via ALS in stable condition. Departure - Departure Time of Disposition: 03:09 Disposition: DC/Tfer to Acute Hospital 02 Condition: Fair Clinical Impression: SBO (small bowel obstruction), Primary pancreatic cancer with metastasis to other site - Discharge Information Forms: ED Department Discharge - My Orders Last 24 Hours: My Active Orders 08/12/18 23:06 Abdomen Pelvis w Cont [CT] Stat - Assessment/Plan Last 24 Hours: My Active Orders 08/12/18 23:06 Abdomen Pelvis w Cont [CT] Stat
[2018-08-13] MEDS ORDERED: Ondansetron 4 MG/2 ML SDV IVPUSH ONE (00:02)
[2018-08-13] MEDS ORDERED: Ketorolac 30 MG/ML SDV IVPUSH ONE (00:02)
[2018-08-13] MEDS ORDERED: Lidocaine 1% 20 ML MDV ONE (00:22)
[2018-08-13] MEDS ORDERED: Iopamidol 612 MG/ML 75 ML Bottle IV ONE (01:00)
[2018-08-13] MEDS ORDERED: Sodium Chloride 0.9% 50 ML IV SCH (01:00)
[2018-08-13 03:09] VITALS: BP 156/76
[2018-08-15] MEDS ORDERED: Iopamidol 612 MG/ML 75 ML Bottle IV ONE (07:13)
[2018-08-15] MEDS ORDERED: Sodium Chloride 0.9% 50 ML IV SCH (07:15)
== END 2018-08-13 03:40 ==
LOC: KA.ED 22:52
DX: K56.609 Unspecified intestinal obstruction, unspecified as to partial versus complete obstruction (principal); C25.9 Malignant neoplasm of pancreas, unspecified; C79.89 Secondary malignant neoplasm of other specified sites; I10 Essential (primary) hypertension; Z88.5 Allergy status to narcotic agent; Z79.899 Other long term (current) drug therapy
CPT/HCPCS: 74177; 80053; 83690; 85025; 96374; 96375; 96376; 99284; 99285; J2405

== ENCOUNTER 2018-09-14 12:26 | Observation (INO) | payer MEDICARE, BC ==
--- NOTE | 2018-09-14 12:50 | EDM.PDOC ---
ED HPI GENERAL MEDICAL PROBLEM - General Stated Complaint: BLOODY STOOLS Time Seen by Provider: 09/14/18 12:30 Source of Information: Reports: Patient, Significant Other History Limitations: Reports: No Limitations - History of Present Illness INITIAL COMMENTS - FREE TEXT/NARRATIVE: Patient presents with weakness, lightheadedness and bloody stools. The stools look very dark and as they start to dissolve in the toilet water they become more reddish. She was here in the ER 4 days ago with more severe weakness and lightheadedness along with bloody stools and was transferred to [place] for further evaluation and colonoscopy. Patient says she was discharged to home 2 days ago after getting a unit of blood and having an upper endoscopy but no colonoscopy. She would like to have the colonoscopy here locally if possible but as we discussed at last visit there are limitations with treatment options regarding therapeutic colonoscopy but this depends somewhat on who is doing the scope. She isn't eating very much. - Related Data Allergies Allergy/AdvReac Type Severity Reaction Status Date / Time hydromorphone HCl Allergy Confusion Verified 09/14/18 12:57 [From Dilaudid] morphine Allergy Confusion Verified 09/14/18 12:57 Home Meds: Home Meds Acetaminophen 650 mg PO Q6HR PRN 05/03/17 [History] Pantoprazole [ProTONIX] 40 mg PO BIDAC 09/09/17 [History] Escitalopram [Lexapro] 10 mg PO DAILY #30 tablet 09/27/17 [Rx] Ondansetron [Zofran ODT] 8 mg PO TID PRN #60 tab.dis 09/27/17 [Rx] Lipase/Protease/Amylase [Leigh TELLO 3,000 Unit] 6,000 unit PO ASDIRECTED 08/13/18 [History] Multivitamin [Multi-Vitamin Daily] 1 tab PO DAILY 08/13/18 [History] Vitamin B Complex [B Complex] 1 tab PO ASDIRECTED 08/13/18 [History] Zinc 50 mg PO DAILY 08/13/18 [History] Zolpidem [Ambien] 5 mg PO BEDTIME PRN 08/13/18 [History] Calcium Carbonate/Vitamin D3 [Os-Channing 500+D] 1 tab PO ACDINNER 09/10/18 [History] Cyanocobalamin (Vitamin B-12) [Vitamin B-12] 100 mcg PO DAILY 09/10/18 [History] Diclofenac Sodium [Voltaren 1% Gel] 2 gram TOP BID PRN 09/10/18 [History] LORazepam [Ativan] 0.5 mg PO Q8H PRN 09/10/18 [History] Magnesium Hydroxide [Milk of Magnesia] 30 ml PO TID PRN 09/10/18 [History] Phosphorus #1 [Phospha 250 Neutral Tablet] 500 mg PO BID 09/10/18 [History] Polyethylene Glycol 3350 [MiraLAX] 1 pkt PO DAILY PRN 09/10/18 [History] Prochlorperazine Maleate [Compazine] 10 mg PO QID PRN 09/10/18 [History] Past Medical History HEENT History: Reports: Hard of Hearing, Impaired Vision Cardiovascular History: Reports: Hypertension Gastrointestinal History: Reports: Bowel Obstruction, Chronic Constipation, Diverticulosis, GERD, Hemorrhoids, Other (See Below) Other Gastrointestinal History: pancreatic cancer with mets to the transverse colon Genitourinary History: Reports: None Musculoskeletal History: Reports: None, Back Pain, Chronic Psychiatric History: Reports: Depression Hematologic History: Reports: Blood Transfusion(s) Immunologic History: Reports: Immunosuppression Oncologic (Cancer) History: Reports: Breast, Colon, Pancreatic - Infectious Disease History 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, Herpes - Past Surgical History HEENT Surgical History: Reports: Tonsillectomy Other Respiratory Surgeries/Procedures: h/o smoking GI Surgical History: Reports: Cholecystectomy, Colonoscopy, Other (See Below) Other GI Surgeries/Procedures: whipple resection Female Surgical History: Reports: Breast Biopsy, Mastectomy, Tubal Ligation Other Musculoskeletal Surgeries/Procedures:: bunyon surgery Oncologic Surgical History: Reports: Biopsy of Breast, Mastectomy Social & Family History - Family History Family Medical History: Unobtainable - Caffeine Use Caffeine Use: Reports: None ED ROS GENERAL - Review of Systems Review Of Systems: See Below Constitutional: Reports: Weakness. Denies: Fever, Chills, Malaise HEENT: Denies: Throat Pain, Vision Change Respiratory: Denies: Shortness of Breath, Cough Cardiovascular: Reports: Lightheadedness. Denies: Chest Pain, Syncope Endocrine: Reports: Fatigue GI/Abdominal: Reports: Abdominal Pain (somewhat but less than a few days ago; fairly chronic), Black Stool, Bloody Stool, Constipation, Diarrhea (after laxative), Decreased Appetite. Denies: Vomiting : Denies: Dysuria, Flank Pain, Frequency Musculoskeletal: Reports: No Symptoms Skin: Denies: Cyanosis, Jaundice, Mottled, Pallor, Diaphoresis Neurological: Reports: Weakness. Denies: Confusion, Dizziness, Headache, Seizure, Syncope Psychiatric: Reports: Anxiety. Denies: Agitation, Confusion Hematologic/Lymphatic: Reports: Anemia ED EXAM, GI/ABD - Physical Exam Exam: See Below Exam Limited By: No Limitations General Appearance: Alert, WD/WN, No Apparent Distress Eyes: Bilateral: Normal Appearance, EOMI Ears: Normal External Exam, Hearing Grossly Normal Nose: Normal Inspection, No Blood Throat/Mouth: Normal Inspection, Normal Lips, Normal Voice, No Airway Compromise Head: Atraumatic, Normocephalic Neck: Normal Inspection, Full Range of Motion Respiratory/Chest: No Respiratory Distress, Lungs Clear, Normal Breath Sounds, No Accessory Muscle Use Cardiovascular: Normal Peripheral Pulses, Regular Rate, Rhythm, No Murmur GI/Abdominal Exam: Normal Bowel Sounds, Soft, No Organomegaly, No Distention, Tender (mild general to palpation) Back Exam: Full Range of Motion. No: CVA Tenderness (L), CVA Tenderness (R) Extremities: Normal Inspection, Normal Range of Motion, Non-Tender, No Pedal Edema Neurological: Alert, Oriented, Normal Cognition, No Motor/Sensory Deficits Psychiatric: Normal Affect, Normal Mood Skin Exam: Warm, Dry, Intact, Normal Color, No Rash Course - Vital Signs Last Recorded V/S: Last Vital Signs Temp 97.8 F 09/14/18 12:40 Pulse 97 09/14/18 12:40 Resp 20 09/14/18 12:40 BP 93/76 09/14/18 12:40 Pulse Ox 95 09/14/18 12:40 - Orders/Labs/Meds Labs: Laboratory Tests 09/14/18 09/14/18 09/14/18 Range/Units 13:15 13:15 13:15 WBC 4.61 L (5.00-10.00) 10^3/uL RBC 3.18 L (3.80-5.50) 10^6/uL Hgb 9.3 L (12.0-16.0) g/dL Hct 29.2 L (37.0-47.0) % MCV 91.8 D (82.0-92.0) fL MCH 29.2 (27.0-31.0) pg MCHC 31.8 L (32.0-36.0) g/dL RDW 17.1 H (11.5-14.5) % Plt Count 223 (150-400) 10^3/uL MPV 7.9 (7.4-10.4) fL PT 10.2 (8.9-11.4) SEC INR 1.0 (0.9-1.1) APTT 28.1 (20.8-31.2) SEC Sodium 140 (136-145) mmol/L Potassium 3.9 (3.3-5.3) mmol/L Chloride 104 (98-115) mmol/L Carbon Dioxide 21.0 (21.0-32.0) mmol/L Anion Gap 18.9 H (5-15) mmol/L BUN 12 (6-25) mg/dL Creatinine 0.69 (0.51-1.17) mg/dL Est Cr Clr Drug Dosing 64.10 mL/min Estimated GFR (MDRD) > 60 mL/min Glucose 150 mg/dL Calcium 8.0 L (8.7-10.3) mg/dL Total Bilirubin 0.4 (0.2-1.0) mg/dL AST 45 H (15-37) U/L ALT 44 (12-78) U/L Alkaline Phosphatase 162 H (46-116) IU/L Total Protein 6.5 (6.4-8.2) g/dL Albumin 3.60 (3.00-4.80) g/dL Meds: Medications Discontinued Medications Generic Name Dose Route Start Last Admin Trade Name Freq PRN Reason Stop Dose Admin Sodium Chloride 1,000 mls @ 999 mls/hr 09/14/18 13:02 09/14/18 13:40 Normal Saline IV 09/14/18 14:02 999 mls/hr .BOLUS ONE Administration - Re-Assessments/Exams Free Text/Narrative Re-Assessment/Exam: 09/14/18 14:08 Hgb is 9.3 which is up from Wednesday after getting unit of blood in [place]. The rest of the labs are stable. Giving fluids now for the weakness and low BP. She is anxious to get a colonoscopy and find out where the bleeding is coming from as the upper GI showed a healed ulcer but no active bleeding. Discussed case with her PCP, Eleazar Fan NP who advised admitting for observation and monitoring of bleeding. He will thoroughly evaluate treatment options with her. Patient is agreeable with this and discharged from ER in stable condition. Departure - Departure Time of Disposition: 14:05 Disposition: Refer to Observation Condition: Good Clinical Impression: General weakness, GI bleed not requiring more than 4 units of blood in 24 hours , ICU, or surgery, Anxiety Anemia Qualifiers: Anemia type: iron deficiency Iron deficiency anemia type: chronic blood loss Qualified Code(s): D50.0 - Iron deficiency anemia secondary to blood loss ( chronic) - Discharge Information Referrals: Eleazar Fan NP [Primary Care Provider] -
[2018-09-14] MEDS ORDERED: Sodium Chloride 0.9% 1,000 ML IV ONE (13:02)
[2018-09-14 13:44] LABS: ANION GAP 18.9 mmol/L (5-15); CHLORIDE,CL 104 mmol/L (98-115); SODIUM,NA 140 mmol/L (136-145)
[2018-09-14] MEDS ORDERED: Ondansetron 4 MG Tab.DIS PO PRN (15:08)
[2018-09-14] MEDS ORDERED: Sodium Chloride 0.9% 5 ML Syringe FLUSH PRN (15:08)
[2018-09-14] MEDS ORDERED: LORazepam 0.5 MG Tab PO PRN (15:10)
[2018-09-14] MEDS ORDERED: Prochlorperazine 5 MG Tab PO PRN (15:10)
[2018-09-14] MEDS ORDERED: Acetaminophen 325 MG Tab PO PRN (15:10)
[2018-09-14] MEDS ORDERED: Zolpidem 5 MG Tab PO PRN (15:10)
[2018-09-14] MEDS ORDERED: CREON 6000 UNIT PO PRN (17:04)
[2018-09-14] MEDS: CREON 6000 UNIT PO SCH (17:40)
[2018-09-14] MEDS: Pantoprazole 40 MG Tab.CR PO SCH (17:40)
[2018-09-14] MEDS: Sodium Chloride 0.9% 20 ML SDV FLUSH SCH ×2 (17:41→21:16)
[2018-09-14] MEDS ORDERED: CREON 6000 UNIT PO SCH (18:00)
[2018-09-14] MEDS: Phosphorus #1 250 MG Tab PO SCH (21:13)
[2018-09-14] MEDS ORDERED: Magnesium Hydroxide 400 MG/5 ML Susp 30 ML Cup PO SCH (22:00)
[2018-09-15] MEDS: Sodium Chloride 0.9% 20 ML SDV FLUSH SCH (06:06)
[2018-09-15 06:48] VITALS: BP 115/73
[2018-09-15] MEDS: Pantoprazole 40 MG Tab.CR PO SCH (07:50)
[2018-09-15] MEDS: CREON 6000 UNIT PO SCH (07:51)
[2018-09-15] MEDS: Phosphorus #1 250 MG Tab PO SCH (08:00)
[2018-09-15] MEDS ORDERED: CREON 6000 UNIT PO PRN (08:53)
[2018-09-15] MEDS ORDERED: Escitalopram 10 MG Tab PO SCH (09:00)
[2018-09-15] MEDS ORDERED: Cyanocobalamin (Vitamin B12) 500 MCG Tab PO SCH (09:00)
[2018-09-15] MEDS ORDERED: Polyethylene Glycol 3350 Powder 17 GM Packet PO SCH (09:00)
--- NOTE | 2018-09-15 09:44 | PCM.HP ---
H&P History of Present Illness - General Date of Service: 09/14/18 Admit Problem/Dx: Admission Diagnosis/Problem Admission Diagnosis/Problem Anemia due to blood loss Source of Information: Patient, Old Records, Provider, RN - History of Present Illness Initial Comments - Free Text/Narative: 72-year-old female was admitted to observation when she came into the ED due to weakness and anemia and GI bleeding also had him lightheadedness with bloody stools she states. She was recently in [facility] hospitalized in which an upper EGD was performed nonbleeding ulcer placed on twice a day Protonix. The stools look very dark and as they start to dissolve in the toilet water they become more reddish. Patient says she was discharged to home after she had received a unit of blood. She was admitted to observation - Related Data Allergies/Adverse Reactions: Allergies Allergy/AdvReac Type Severity Reaction Status Date / Time hydromorphone HCl Allergy Confusion Verified 09/14/18 12:57 [From Dilaudid] morphine Allergy Confusion Verified 09/14/18 12:57 Home Medications: Home Meds Acetaminophen 650 mg PO Q6HR PRN 05/03/17 [History] Pantoprazole [ProTONIX] 40 mg PO BIDAC 09/09/17 [History] Escitalopram [Lexapro] 10 mg PO DAILY #30 tablet 09/27/17 [Rx] Ondansetron [Zofran ODT] 8 mg PO TID PRN #60 tab.dis 09/27/17 [Rx] Multivitamin [Multi-Vitamin Daily] 1 tab PO DAILY 08/13/18 [History] Vitamin B Complex [B Complex] 1 tab PO ASDIRECTED 08/13/18 [History] Zinc 50 mg PO DAILY 08/13/18 [History] Zolpidem [Ambien] 5 mg PO BEDTIME PRN 08/13/18 [History] Calcium Carbonate/Vitamin D3 [Os-Channing 500+D] 1 tab PO ACDINNER 09/10/18 [History] Cyanocobalamin (Vitamin B-12) [Vitamin B-12] 100 mcg PO DAILY 09/10/18 [History] Diclofenac Sodium [Voltaren 1% Gel] 2 gram TOP BID PRN 09/10/18 [History] LORazepam [Ativan] 0.5 mg PO Q8H PRN 09/10/18 [History] Magnesium Hydroxide [Milk of Magnesia] 30 ml PO DAILY 09/10/18 [History] Phosphorus #1 [Phospha 250 Neutral Tablet] 500 mg PO BID 09/10/18 [History] Polyethylene Glycol 3350 [MiraLAX] 1 pkt PO DAILY 09/10/18 [History] Prochlorperazine Maleate [Compazine] 10 mg PO QID PRN 09/10/18 [History] Creon 6000 Unit 6,000 - 12,000 units PO ASDIRECTED PRN 09/15/18 [History] Creon 6000 Unit 18,000 - 24,000 units PO TIDMEALS 09/15/18 [History] Past Medical History HEENT History: Reports: Hard of Hearing, Impaired Vision Cardiovascular History: Reports: Hypertension Gastrointestinal History: Reports: Bowel Obstruction, Chronic Constipation, Diverticulosis, GERD, Hemorrhoids, Other (See Below) Other Gastrointestinal History: pancreatic cancer with mets to the transverse colon Genitourinary History: Reports: None Musculoskeletal History: Reports: None, Back Pain, Chronic Psychiatric History: Reports: Depression Hematologic History: Reports: Anemia, Blood Transfusion(s) Immunologic History: Reports: Immunosuppression Oncologic (Cancer) History: Reports: Breast, Colon, Pancreatic - Infectious Disease History 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, Herpes - Past Surgical History HEENT Surgical History: Reports: Tonsillectomy Other Respiratory Surgeries/Procedures: h/o smoking GI Surgical History: Reports: Cholecystectomy, Colonoscopy, Other (See Below) Other GI Surgeries/Procedures: whipple resection Female Surgical History: Reports: Breast Biopsy, Mastectomy, Tubal Ligation Other Musculoskeletal Surgeries/Procedures:: bunyon surgery Oncologic Surgical History: Reports: Biopsy of Breast, Mastectomy Social & Family History - Family History HEENT: Reports: None Cardiac: Reports: None Respiratory: Reports: None GI: Reports: None : Reports: None OBGYN: Reports: None Musculoskeletal: Reports: None Neurological: Reports: None Psychiatric: Reports: None Endocrine/Metabolic: Reports: Hypothyroidism (Sr. alive hypothyroidism), Osteoporosis (Mother alive osteoporosis along with hip fracture) Hematologic: Reports: None Immunologic: Reports: None Oncologic: Reports: Breast (MGMo, in her 90s breast cancer, Paternal aunt, breast cancer) - Tobacco Use Smoking Status *Q: Former Smoker Used Tobacco, but Quit: Yes Month/Year Tobacco Last Used: March Second Hand Smoke Exposure: No - Caffeine Use Caffeine Use: Reports: None - Recreational Drug Use Recreational Drug Use: No H&P Review of Systems - Review of Systems: Review Of Systems: See Below General: Reports: No Symptoms HEENT: Reports: No Symptoms Pulmonary: Reports: No Symptoms Cardiovascular: Reports: No Symptoms Gastrointestinal: Reports: Black Stool, Melena. Denies: Abdominal Pain, Constipation, Diarrhea, Distension, Nausea, Vomiting Genitourinary: Reports: No Symptoms Musculoskeletal: Reports: No Symptoms Skin: Reports: Pallor Psychiatric: Reports: Anxiety Neurological: Reports: No Symptoms Hematologic/Lymphatic: Reports: Anemia Immunologic: Reports: No Symptoms Exam - Exam Exam: See Below - Vital Signs Vital Signs: Last Vital Signs Temp 98.6 F 09/15/18 06:46 Pulse 79 09/15/18 06:46 Resp 16 09/15/18 06:46 BP 115/73 09/15/18 06:46 Pulse Ox 96 09/15/18 09:33 Weight: 120 lb 3.2 oz - Exam Quality Assessment: No: Supplemental Oxygen General: Alert, Oriented, 4 HEENT: Mucosa Moist & [place] Neck: Supple Lungs: Clear to Auscultation, Normal Respiratory Effort Cardiovascular: Regular Rate, Regular Rhythm GI/Abdominal Exam: Soft, Non-Tender. No: Distended Back Exam: No: CVA Tenderness (L), CVA Tenderness (R) Extremities: No Pedal Edema Skin: Other Neurological: Cranial Nerves Intact, Reflexes Equal Bilateral Neuro Extensive - Mental Status: Alert, Oriented x3, Normal Mood/Affect, Normal Cognition Psychiatric: Anxious - Patient Data Lab Results Last 24 hrs: Laboratory Results - last 24 hr 09/14/18 09/14/18 09/14/18 Range/Units 13:15 13:15 13:15 WBC 4.61 L (5.00-10.00) 10^3/uL RBC 3.18 L (3.80-5.50) 10^6/uL Hgb 9.3 L (12.0-16.0) g/dL Hct 29.2 L (37.0-47.0) % MCV 91.8 D (82.0-92.0) fL MCH 29.2 (27.0-31.0) pg MCHC 31.8 L (32.0-36.0) g/dL RDW 17.1 H (11.5-14.5) % Plt Count 223 (150-400) 10^3/uL MPV 7.9 (7.4-10.4) fL PT 10.2 (8.9-11.4) SEC INR 1.0 (0.9-1.1) APTT 28.1 (20.8-31.2) SEC Sodium 140 (136-145) mmol/L Potassium 3.9 (3.3-5.3) mmol/L Chloride 104 (98-115) mmol/L Carbon Dioxide 21.0 (21.0-32.0) mmol/L Anion Gap 18.9 H (5-15) mmol/L BUN 12 (6-25) mg/dL Creatinine 0.69 (0.51-1.17) mg/dL Est Cr Clr Drug Dosing 64.10 mL/min Estimated GFR (MDRD) > 60 mL/min Glucose 150 mg/dL Calcium 8.0 L (8.7-10.3) mg/dL Total Bilirubin 0.4 (0.2-1.0) mg/dL AST 45 H (15-37) U/L ALT 44 (12-78) U/L Alkaline Phosphatase 162 H (46-116) IU/L Total Protein 6.5 (6.4-8.2) g/dL Albumin 3.60 (3.00-4.80) g/dL 09/15/18 Range/Units 07:22 WBC 3.16 L (5.00-10.00) 10^3/uL RBC 2.92 L (3.80-5.50) 10^6/uL Hgb 8.5 L (12.0-16.0) g/dL Hct 26.9 L (37.0-47.0) % MCV 92.1 H (82.0-92.0) fL MCH 29.1 (27.0-31.0) pg MCHC 31.6 L (32.0-36.0) g/dL RDW 17.2 H (11.5-14.5) % Plt Count 209 (150-400) 10^3/uL MPV 8.2 (7.4-10.4) fL PT (8.9-11.4) SEC INR (0.9-1.1) APTT (20.8-31.2) SEC Sodium (136-145) mmol/L Potassium (3.3-5.3) mmol/L Chloride (98-115) mmol/L Carbon Dioxide (21.0-32.0) mmol/L Anion Gap (5-15) mmol/L BUN (6-25) mg/dL Creatinine (0.51-1.17) mg/dL Est Cr Clr Drug Dosing mL/min Estimated GFR (MDRD) mL/min Glucose mg/dL Calcium (8.7-10.3) mg/dL Total Bilirubin (0.2-1.0) mg/dL AST (15-37) U/L ALT (12-78) U/L Alkaline Phosphatase (46-116) IU/L Total Protein (6.4-8.2) g/dL Albumin (3.00-4.80) g/dL Result Diagrams: 09/15/18 07:22 09/14/18 13:15 Problem List Initiated/Reviewed/Updated: Yes Orders Last 24hrs: Active Orders 24 hr Category Date Time Status Patient Status [ADT] Routine ADT 09/14/18 14:06 Ordered Communication Order [RC] DAILY Care 09/14/18 20:09 Active Height and Weight [RC] .PRN Care 09/14/18 15:08 Active Oxygen Therapy [RC] PRN Care 09/14/18 15:08 Active Up to Chair [RC] ASDIRECTED Care 09/14/18 15:08 Active Vital Signs [RC] 0700,1500,2300 Care 09/14/18 15:08 Active Mechanical Soft Diet [DIET] Diet 09/14/18 Dinner Active Guaiac [OCCULT BLOOD DIAGNOSTIC] [OP] Routine Lab 09/14/18 15:12 Ordered Acetaminophen [Tylenol] Med 09/14/18 15:10 Active 650 mg PO Q6HR PRN Cyanocobalamin (Vitamin B12) [Vitamin B12] Med 09/15/18 09:00 Pending 100 mcg PO DAILY Escitalopram [Lexapro] Med 09/15/18 09:00 Active 10 mg PO DAILY Heparin Sodium [Heparin Lock Flush 100 Units/ML] Med 09/15/18 07:13 Active 500 units FLUSH ASDIRECTED PRN LORazepam [Ativan] Med 09/14/18 15:10 Active 0.5 mg PO Q8H PRN Magnesium Hydroxide [Milk of Magnesia] Med 09/14/18 22:00 Active 30 ml PO 2200 Ondansetron [Zofran ODT] Med 09/14/18 15:08 Active 4 mg PO Q4H PRN Pantoprazole [ProTONIX] Med 09/14/18 17:30 Active 40 mg PO BIDAC Patient's Own Medication [Ptom] Med 09/14/18 18:00 Active 0 each PO TIDMEALS Patient's Own Medication [Ptom] Med 09/15/18 08:53 Active 1 - 2 each PO ASDIRECTED PRN Phosphorus #1 [Neutra-Phos] Med 09/14/18 21:00 Active 500 mg PO BID Polyethylene Glycol 3350 [MiraLAX] Med 09/15/18 09:00 Active 17 gm PO DAILY Prochlorperazine [Compazine] Med 09/14/18 15:10 Active 10 mg PO QID PRN Sodium Chloride 0.9% [Normal Saline] Med 09/14/18 22:00 Active 20 ml FLUSH Q8HR Sodium Chloride 0.9% [Syrex Flush] Med 09/14/18 15:08 Active 5 ml FLUSH Q8HR PRN Zolpidem [Ambien] Med 09/14/18 15:10 Active 5 mg PO BEDTIME PRN Saline Lock Insert [OM.PC] Routine Oth 09/14/18 15:08 Ordered Resuscitation Status Routine Resus Stat 09/14/18 15:08 Ordered Medication Orders Acetaminophen (Tylenol) 650 mg PO Q6HR PRN PRN Reason: Pain (mild 1-3) Cyanocobalamin (Vitamin B12) 100 mcg PO DAILY [facility] Escitalopram Oxalate (Lexapro) 10 mg PO DAILY [facility] Last Admin: 09/15/18 08:00 Dose: 10 mg Heparin Sodium (Porcine) (Heparin Lock Flush 100 Units/Ml) 500 units FLUSH ASDIRECTED PRN PRN Reason: Other Lorazepam (Ativan) 0.5 mg PO Q8H PRN PRN Reason: Anxiety Magnesium Hydroxide (Milk Of Magnesia) 30 ml PO 2200 [facility] Last Admin: 09/14/18 21:14 Dose: 30 ml Ondansetron HCl (Zofran Odt) 4 mg PO Q4H PRN PRN Reason: nausea, able to take PO Pantoprazole Sodium (Protonix) 40 mg PO BIDAC [facility] Last Admin: 09/15/18 07:50 Dose: 40 mg Admin: 09/14/18 17:40 Dose: 40 mg Creon 6,000 Unit 0 each PO TIDMEALS [facility] Last Admin: 09/15/18 07:51 Dose: 2 each Admin: 09/14/18 17:40 Dose: 3 each Creon 6,000 Unit 1 - 2 each PO ASDIRECTED PRN PRN Reason: SNACKS Polyethylene Glycol (Miralax) 17 gm PO DAILY [facility] Last Admin: 09/15/18 08:00 Dose: 17 gm Prochlorperazine Maleate (Compazine) 10 mg PO QID PRN PRN Reason: Nausea/Vomiting Sodium Chloride (Syrex Flush) 5 ml FLUSH Q8HR PRN PRN Reason: Keep Vein Open Sodium Chloride (Normal Saline) 20 ml FLUSH Q8HR [facility] Last Admin: 09/15/18 06:06 Dose: 20 ml Admin: 09/14/18 21:16 Dose: 20 ml Admin: 09/14/18 17:41 Dose: 20 ml Sodium Phosphate (Neutra-Phos) 500 mg PO BID [facility] Last Admin: 09/15/18 08:00 Dose: 500 mg Admin: 09/14/18 21:13 Dose: 500 mg Zolpidem Tartrate (Ambien) 5 mg PO BEDTIME PRN PRN Reason: Insomnia Last Admin: 09/14/18 21:15 Dose: 5 mg Assessment/Plan Comment:: History of present illness 72-year-old female was admitted to observation when she came into the ED due to weakness and anemia and GI bleeding also had him lightheadedness with bloody stools she states. She was recently in [facility] hospitalized in which an upper EGD was performed nonbleeding ulcer placed on twice a day Protonix. The stools look very dark and as they start to dissolve in the toilet water they become more reddish. Patient says she was discharged to home after she had received a unit of blood. She was admitted to observation Pertinent ED findings Hemoglobin, 9.3 (up from [facility]) INR 1.0 Blood pressure 135/86, heart rate 78 No Acute distress Primary hospital problems GI bleed, likely upper, Overall plan, patient is stable condition, hemodynamically stable, continue Protonix twice a day, mechanical soft diet tonight, stool for occult blood. Educated patient regarding holding off from colonoscopy unless overt bleeding and decreasing hemoglobin. Likely could be discharged in the a.m.
--- NOTE | 2018-09-15 10:01 | PCM.DCSUM1 ---
Discharge Summary - Hospital Course Diagnosis: Stroke: No - Discharge Data Discharge Date: 09/15/18 Discharge Disposition: Home, Self-Care 01 Condition: Good - Patient Instructions Diet: GI Soft/Low Residue/Low Fiber, Mechanical Soft Activity: Rest and Relax Today Driving: May Drive Today Showering/Bathing: May Shower Notify Provider of: Nausea and/or Vomiting Other/Special Instructions: Report bloody diarrhea or lightheadedness - Discharge Plan *PRESCRIPTION DRUG MONITORING PROGRAM REVIEWED*: No *COPY OF PRESCRIPTION DRUG MONITORING REPORT IN PATIENT MARLENI: No Prescriptions/Med Rec: Iron Ag,Ps/C/Fa6/B12/Zn/SA/Sto [Niferex Tablet] 1 each PO Q48H #30 tablet Home Medications: Home Meds Acetaminophen 650 mg PO Q6HR PRN 05/03/17 [History] Pantoprazole [ProTONIX] 40 mg PO BIDAC 09/09/17 [History] Escitalopram [Lexapro] 10 mg PO DAILY #30 tablet 09/27/17 [Rx] Ondansetron [Zofran ODT] 8 mg PO TID PRN #60 tab.dis 09/27/17 [Rx] Vitamin B Complex [B Complex] 1 tab PO ASDIRECTED 08/13/18 [History] Zinc 50 mg PO DAILY 08/13/18 [History] Zolpidem [Ambien] 5 mg PO BEDTIME PRN 08/13/18 [History] Calcium Carbonate/Vitamin D3 [Os-Channing 500+D] 1 tab PO ACDINNER 09/10/18 [History] Cyanocobalamin (Vitamin B-12) [Vitamin B-12] 100 mcg PO DAILY 09/10/18 [History] Diclofenac Sodium [Voltaren 1% Gel] 2 gram TOP BID PRN 09/10/18 [History] LORazepam [Ativan] 0.5 mg PO Q8H PRN 09/10/18 [History] Magnesium Hydroxide [Milk of Magnesia] 30 ml PO DAILY 09/10/18 [History] Phosphorus #1 [Phospha 250 Neutral Tablet] 500 mg PO BID 09/10/18 [History] Polyethylene Glycol 3350 [MiraLAX] 1 pkt PO DAILY 09/10/18 [History] Prochlorperazine Maleate [Compazine] 10 mg PO QID PRN 09/10/18 [History] Creon 6000 Unit 6,000 - 12,000 units PO ASDIRECTED PRN 09/15/18 [History] Creon 6000 Unit 18,000 - 24,000 units PO TIDMEALS 09/15/18 [History] Iron Ag,Ps/C/Fa6/B12/Zn/SA/Sto [Niferex Tablet] 1 each PO Q48H #30 tablet [Rx] Referrals: Eleazar Fan, [employer] [Primary Care Provider] - 09/20/18 - Discharge Summary/Plan Comment DC Time >30 min.: Yes Discharge Summary/Plan Comment: Final diagnosis GI bleed, due to ulcer @ duodeno-enteric anastomosis, stable Gastritis, chronic Noncompliant with medications--protonic Recent GI obstruction Secondary problems Pancreatic Cancer s/p Whipple 2014, Stage IV Anxiety Insomnia Brief history 72-year-old female was admitted to observation when she came into the ED due to weakness and anemia and GI bleeding also lightheadedness with bloody stools she states. She was recently in [facility] hospitalized in which an upper EGD was performed nonbleeding ulcer placed on twice a day Protonix. The stools look very dark and as they start to dissolve in the toilet water they become more reddish. Patient says she was discharged to home after she had received a unit of blood. Upon discharge from [facility] patient was compliant with taking her Protonix. She is also afraid of taking iron due to history of GI obstruction. Hospital course Patient stayed one night and did well no stools, blood pressure good, no instability, no hemodynamic instability, no abdominal pain no distention. No fever. Hematocrit did decrease to 8.5 upon discharge. Continued with protonic's with mechanical soft low fiber diet. Physical exam Lungs clear to auscultation GI good bowel tones soft, no distention Skin, slightly pallor Medication changes last adjustments upon discharge Change iron to knee for X 150 mg every other day [place] to continue Protonix 40mg twice a day Disposition She will be discharged from observation status. I will see her next week in the clinic. She is to report any ongoing bloody stools, lightheadedness, medication adherence important, educated regarding hold off for colonoscopy unless overt bleeding or hemoglobin decreasing. - Patient Data Vitals - Most Recent: Last Vital Signs Temp 98.6 F 09/15/18 06:46 Pulse 79 09/15/18 06:46 Resp 16 09/15/18 06:46 BP 115/73 09/15/18 06:46 Pulse Ox 96 09/15/18 09:33 Weight - Most Recent: 120 lb 3.2 oz I&O - Last 24 hours: Intake & Output 09/14/18 09/15/18 09/15/18 22:59 06:59 14:59 Intake Total 220 200 Output Total 1200 600 Balance -980 -400 Lab Results - Last 24 hrs: Laboratory Results - last 24 hr 09/14/18 09/14/18 09/14/18 Range/Units 13:15 13:15 13:15 WBC 4.61 L (5.00-10.00) 10^3/uL RBC 3.18 L (3.80-5.50) 10^6/uL Hgb 9.3 L (12.0-16.0) g/dL Hct 29.2 L (37.0-47.0) % MCV 91.8 D (82.0-92.0) fL MCH 29.2 (27.0-31.0) pg MCHC 31.8 L (32.0-36.0) g/dL RDW 17.1 H (11.5-14.5) % Plt Count 223 (150-400) 10^3/uL MPV 7.9 (7.4-10.4) fL PT 10.2 (8.9-11.4) SEC INR 1.0 (0.9-1.1) APTT 28.1 (20.8-31.2) SEC Sodium 140 (136-145) mmol/L Potassium 3.9 (3.3-5.3) mmol/L Chloride 104 (98-115) mmol/L Carbon Dioxide 21.0 (21.0-32.0) mmol/L Anion Gap 18.9 H (5-15) mmol/L BUN 12 (6-25) mg/dL Creatinine 0.69 (0.51-1.17) mg/dL Est Cr Clr Drug Dosing 64.10 mL/min Estimated GFR (MDRD) > 60 mL/min Glucose 150 mg/dL Calcium 8.0 L (8.7-10.3) mg/dL Total Bilirubin 0.4 (0.2-1.0) mg/dL AST 45 H (15-37) U/L ALT 44 (12-78) U/L Alkaline Phosphatase 162 H (46-116) IU/L Total Protein 6.5 (6.4-8.2) g/dL Albumin 3.60 (3.00-4.80) g/dL 09/15/18 Range/Units 07:22 WBC 3.16 L (5.00-10.00) 10^3/uL RBC 2.92 L (3.80-5.50) 10^6/uL Hgb 8.5 L (12.0-16.0) g/dL Hct 26.9 L (37.0-47.0) % MCV 92.1 H (82.0-92.0) fL MCH 29.1 (27.0-31.0) pg MCHC 31.6 L (32.0-36.0) g/dL RDW 17.2 H (11.5-14.5) % Plt Count 209 (150-400) 10^3/uL MPV 8.2 (7.4-10.4) fL PT (8.9-11.4) SEC INR (0.9-1.1) APTT (20.8-31.2) SEC Sodium (136-145) mmol/L Potassium (3.3-5.3) mmol/L Chloride (98-115) mmol/L Carbon Dioxide (21.0-32.0) mmol/L Anion Gap (5-15) mmol/L BUN (6-25) mg/dL Creatinine (0.51-1.17) mg/dL Est Cr Clr Drug Dosing mL/min Estimated GFR (MDRD) mL/min Glucose mg/dL Calcium (8.7-10.3) mg/dL Total Bilirubin (0.2-1.0) mg/dL AST (15-37) U/L ALT (12-78) U/L Alkaline Phosphatase (46-116) IU/L Total Protein (6.4-8.2) g/dL Albumin (3.00-4.80) g/dL Med Orders - Current: Current Medications Acetaminophen (Tylenol) 650 mg PO Q6HR PRN PRN Reason: Pain (mild 1-3) Escitalopram Oxalate (Lexapro) 10 mg PO DAILY KATELYN Last Admin: 09/15/18 08:00 Dose: 10 mg Heparin Sodium (Porcine) (Heparin Lock Flush 100 Units/Ml) 500 units FLUSH ASDIRECTED PRN PRN Reason: Other Lorazepam (Ativan) 0.5 mg PO Q8H PRN PRN Reason: Anxiety Magnesium Hydroxide (Milk Of Magnesia) 30 ml PO 2200 [facility] Last Admin: 09/14/18 21:14 Dose: 30 ml Ondansetron HCl (Zofran Odt) 4 mg PO Q4H PRN PRN Reason: nausea, able to take PO Pantoprazole Sodium (Protonix) 40 mg PO BIDAC [facility] Last Admin: 09/15/18 07:50 Dose: 40 mg Creon 6,000 Unit 0 each PO TIDMEALS [facility] Last Admin: 09/15/18 07:51 Dose: 2 each Creon 6,000 Unit 1 - 2 each PO ASDIRECTED PRN PRN Reason: SNACKS Polyethylene Glycol (Miralax) 17 gm PO DAILY [facility] Last Admin: 09/15/18 08:00 Dose: 17 gm Prochlorperazine Maleate (Compazine) 10 mg PO QID PRN PRN Reason: Nausea/Vomiting Sodium Chloride (Syrex Flush) 5 ml FLUSH Q8HR PRN PRN Reason: Keep Vein Open Sodium Chloride (Normal Saline) 20 ml FLUSH Q8HR [facility] Last Admin: 09/15/18 06:06 Dose: 20 ml Sodium Phosphate (Neutra-Phos) 500 mg PO BID [facility] Last Admin: 09/15/18 08:00 Dose: 500 mg Zolpidem Tartrate (Ambien) 5 mg PO BEDTIME PRN PRN Reason: Insomnia Last Admin: 09/14/18 21:15 Dose: 5 mg Discontinued Medications Sodium Chloride (Normal Saline) 1,000 mls @ 999 mls/hr IV .BOLUS ONE Stop: 09/14/18 14:02 Last Admin: 09/14/18 13:40 Dose: 999 mls/hr Creon 6,000 Unit 0 each PO ASDIRECTED PRN PRN Reason: SNACKS Polyethylene Glycol (Miralax) 17 gm PO DAILY [facility]
[2018-09-16] MEDS ORDERED: Polyethylene Glycol 3350 Powder 17 GM Packet PO SCH (09:00)
== END 2018-09-15 11:05 | disposition home or self-care (01) ==
LOC: KA.ED 12:26 → KA.MS 14:06
PROVIDERS: ADMIT Physician Assistant Surgical; ATTEND Nurse Practitioner Family
DX: K25.4 Chronic or unspecified gastric ulcer with hemorrhage (principal); K29.51 Unspecified chronic gastritis with bleeding; Z91.14 Patient's other noncompliance with medication regimen; K56.609 Unspecified intestinal obstruction, unspecified as to partial versus complete obstruction; I10 Essential (primary) hypertension; F41.9 Anxiety disorder, unspecified; G47.00 Insomnia, unspecified; Z87.891 Personal history of nicotine dependence; Z79.899 Other long term (current) drug therapy; Z88.5 Allergy status to narcotic agent
CPT/HCPCS: 36415; 80053; 82272; 85027; 85610; 85730; 99285; A9270-GY; G0378; J1642; J7030

== ENCOUNTER 2019-02-10 04:45 | Emergency (ER) | payer MEDICARE, BC ==
[2019-02-10 04:57] VITALS: BP 154/92
--- NOTE | 2019-02-10 05:03 | EDM.PDOC ---
ED HPI GENERAL MEDICAL PROBLEM - General Chief Complaint: Abdominal Pain Stated Complaint: ABDOMINAL PAIN Time Seen by Provider: 02/10/19 05:03 Source of Information: Reports: Patient History Limitations: Reports: No Limitations - History of Present Illness INITIAL COMMENTS - FREE TEXT/NARRATIVE: Abd pain Wednesday with clinic appt and negative findings med changes one day of increased flatus feeling good. yestrday started again to worsen wtih pain this morning 10 of 10, but able to converse. and give details of visits. No BM snce awakening. No other pain issues. "Feels stomach when lying in bed gurgles" constipation with secondary of narcotic use for pain. Onset: Gradual, Other (Wednesday with waxing and waning in severity.) Duration: Day(s):, Waxing/Waning Location: Reports: Abdomen Quality: Reports: Pressure, Same as Previous Episode, Sharp Severity: Moderate Improves with: Reports: None Worsens with: Reports: None Associated Symptoms: Reports: No Other Symptoms Treatments [employer] ASSISTANT: Reports: Home Treatments Right Abdominal Pain Score (Numeric/FACES): 10 - Related Data Allergies Allergy/AdvReac Type Severity Reaction Status Date / Time hydromorphone HCl Allergy Confusion Verified 09/17/18 22:35 [From Dilaudid] morphine Allergy Confusion Verified 09/17/18 22:35 Home Meds: Home Meds Acetaminophen 650 mg PO Q6HR PRN 05/03/17 [History] Pantoprazole [ProTONIX] 40 mg PO BIDAC 09/09/17 [History] Escitalopram [Lexapro] 10 mg PO DAILY #30 tablet 09/27/17 [Rx] Ondansetron [Zofran ODT] 8 mg PO TID PRN #60 tab.dis 09/27/17 [Rx] Vitamin B Complex [B Complex] 1 tab PO ASDIRECTED 08/13/18 [History] Zinc 50 mg PO DAILY 08/13/18 [History] Zolpidem [Ambien] 5 mg PO BEDTIME PRN 08/13/18 [History] Calcium Carbonate/Vitamin D3 [Os-Channing 500+D] 1 tab PO ACDINNER 09/10/18 [History] Cyanocobalamin (Vitamin B-12) [Vitamin B-12] 100 mcg PO DAILY 09/10/18 [History] Diclofenac Sodium [Voltaren 1% Gel] 2 gram TOP BID PRN 09/10/18 [History] LORazepam [Ativan] 0.5 mg PO Q8H PRN 09/10/18 [History] Magnesium Hydroxide [Milk of Magnesia] 30 ml PO DAILY PRN 09/10/18 [History] Polyethylene Glycol 3350 [MiraLAX] 1 pkt PO DAILY PRN 09/10/18 [History] Prochlorperazine Maleate [Compazine] 10 mg PO QID PRN 09/10/18 [History] Creon 6000 Unit 6,000 - 12,000 units PO ASDIRECTED PRN 09/15/18 [History] Creon 6000 Unit 18,000 - 24,000 units PO TIDMEALS 09/15/18 [History] Iron Ag,Ps/C/Fa6/B12/Zn/SA/Sto [Niferex Tablet] 1 each PO Q48H #30 tablet [Rx] Hydrocodone/Acetaminophen [Hydrocodon-Acetaminophen 5-325] 1 tab PO Q8H PRN 03/26 [History] Hydrocortisone [Anusol-HC] 1 applic RECTAL ASDIRECTED PRN 02/10/19 [History] Naloxegol Oxalate [Movantik] 25 mg PO DAILY 02/10/19 [History] rOPINIRole HCl [Requip] 0.25 mg PO BEDTIME PRN 02/10/19 [History] Past Medical History HEENT History: Reports: Hard of Hearing, Impaired Vision Cardiovascular History: Reports: Hypertension Gastrointestinal History: Reports: Bowel Obstruction, Chronic Constipation, Diverticulosis, GERD, Hemorrhoids, Other (See Below) Other Gastrointestinal History: pancreatic cancer with mets to the transverse colon Genitourinary History: Reports: None BI LEAD History: Reports: Musculoskeletal History: Reports: None, Back Pain, Chronic Psychiatric History: Reports: Depression Hematologic History: Reports: Anemia, Blood Transfusion(s) Immunologic History: Reports: Immunosuppression Oncologic (Cancer) History: Reports: Breast, Colon, Pancreatic - Infectious Disease History 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, Herpes - Past Surgical History HEENT Surgical History: Reports: Tonsillectomy Other Respiratory Surgeries/Procedures: h/o smoking GI Surgical History: Reports: Cholecystectomy, Colonoscopy, Other (See Below) Other GI Surgeries/Procedures: whipple resection Female Surgical History: Reports: Breast Biopsy, Mastectomy, Tubal Ligation Other Musculoskeletal Surgeries/Procedures:: bunyon surgery Oncologic Surgical History: Reports: Biopsy of Breast, Mastectomy Social & Family History - Family History Family Medical History: Noncontributory HEENT: Reports: None Cardiac: Reports: None Respiratory: Reports: None GI: Reports: None : Reports: None OBGYN: Reports: None Musculoskeletal: Reports: None Neurological: Reports: None Psychiatric: Reports: None Endocrine/Metabolic: Reports: Hypothyroidism (Sr. alive hypothyroidism), Osteoporosis (Mother alive osteoporosis along with hip fracture) Hematologic: Reports: None Immunologic: Reports: None Oncologic: Reports: Breast (MGMo, in her 90s breast cancer, Paternal aunt, breast cancer) - Caffeine Use Caffeine Use: Reports: None ED ROS GENERAL - Review of Systems Review Of Systems: See Below Constitutional: Reports: No Symptoms HEENT: Reports: No Symptoms Respiratory: Reports: No Symptoms Cardiovascular: Reports: No Symptoms Endocrine: Reports: No Symptoms GI/Abdominal: Reports: Abdominal Pain : Reports: No Symptoms Musculoskeletal: Reports: No Symptoms Skin: Reports: No Symptoms Neurological: Reports: No Symptoms Psychiatric: Reports: No Symptoms Hematologic/Lymphatic: Reports: No Symptoms Immunologic: Reports: No Symptoms ED EXAM, GENERAL - Physical Exam Exam: See Below Exam Limited By: No Limitations General Appearance: Alert, WD/WN, No Apparent Distress Ears: Normal External Exam, Normal Canal, Hearing Grossly Normal, Normal TMs Ear Exam: Bilateral Ear: Auricle Normal, Canal Normal, TM normal Nose: Normal Inspection, Normal Mucosa, No Blood Throat/Mouth: Normal Inspection, Normal Lips, Normal Teeth, Normal Gums, Normal Oropharynx, Normal Voice, No Airway Compromise Head: Atraumatic, Normocephalic Neck: Normal Inspection, Supple, Non-Tender, Full Range of Motion Respiratory/Chest: No Respiratory Distress, Lungs Clear, Normal Breath Sounds, Chest Non-Tender Cardiovascular: Normal Peripheral Pulses, Regular Rate, Rhythm, No Edema, No Murmur GI/Abdominal: Soft, No Organomegaly, No Distention, No Abnormal Bruit, Tender. No: Rebound (Female) Exam: Deferred Rectal (Female) Exam: Deferred Back Exam: Full Range of Motion Extremities: Normal Inspection, Normal Range of Motion, Non-Tender, No Pedal Edema, Normal Capillary Refill Neurological: Alert, Oriented, CN II-XII Intact, Normal Cognition, Normal Gait, Normal Reflexes, No Motor/Sensory Deficits Psychiatric: Normal Affect, Normal Mood Skin Exam: Warm, Dry, Intact, Normal Color, No Rash Course - Vital Signs Last Recorded V/S: Last Vital Signs Temp 36.2 C 02/10/19 04:54 Pulse 77 02/10/19 04:54 Resp 16 02/10/19 04:54 BP 154/92 H 02/10/19 04:54 Pulse Ox 99 02/10/19 04:54 - Orders/Labs/Meds Orders: Active Orders 24 hr Category Date Time Status Abdomen 2V AP Upright Decub [CR] Stat Exams 02/10/19 05:11 Taken Labs: Laboratory Tests 02/10/19 02/10/19 Range/Units 05:25 05:25 WBC 7.46 (5.00-10.00) 10^3/uL RBC 3.67 L (3.80-5.50) 10^6/uL Hgb 10.3 L (12.0-16.0) g/dL Hct 32.7 L (37.0-47.0) % MCV 89.1 (82.0-92.0) fL MCH 28.1 (27.0-31.0) pg MCHC 31.5 L (32.0-36.0) g/dL RDW 19.7 H (11.5-14.5) % Plt Count 331 (150-400) 10^3/uL MPV 7.7 (7.4-10.4) fL Immature Gran % (Auto) 0.3 (0.0-5.0) % Neut % (Auto) 84.1 H (50.0-70.0) % Lymph % (Auto) 7.9 L (20.0-40.0) % [place] % (Auto) 6.7 (2.0-8.0) % Eos % (Auto) 0.7 L (1.0-3.0) % Baso % (Auto) 0.3 (0.0-1.0) % Immature Gran # (Auto) 0.02 (0.00-0.50) 10^3/uL Neut # (Auto) 6.28 (2.50-7.00) 10^3/uL Lymph # (Auto) 0.59 L (1.00-4.00) 10^3/uL [place] # (Auto) 0.50 (0.10-0.80) 10^3/uL Eos # (Auto) 0.05 L (0.10-0.30) 10^3/uL Baso # (Auto) 0.02 (0.00-0.10) 10^3/uL Sodium 141 (136-145) mmol/L Potassium 3.4 (3.3-5.3) mmol/L Chloride 102 (98-115) mmol/L Carbon Dioxide 26.8 (21.0-32.0) mmol/L Anion Gap 15.6 H (5-15) mmol/L BUN 14 (6-25) mg/dL Creatinine 0.61 (0.51-1.17) mg/dL Est Cr Clr Drug Dosing 61.18 mL/min Estimated GFR (MDRD) > 60 mL/min Glucose 153 H (75 - 99) mg/dL Calcium 9.0 (8.7-10.3) mg/dL Total Bilirubin 1.7 H (0.2-1.0) mg/dL AST 112 H (15-37) U/L ALT 125 H (12-78) U/L Alkaline Phosphatase 1366 H (46-116) IU/L Total Protein 6.2 L (6.4-8.2) g/dL Albumin 2.53 L (3.00-4.80) g/dL Amylase 22 L (25-125) U/L Lipase 20 L (73-393) U/L Meds: Medications Discontinued Medications Generic Name Dose Route Start Last Admin Trade Name Freq PRN Reason Stop Dose Admin Ondansetron HCl 4 mg 02/10/19 07:43 02/10/19 07:50 Zofran Odt PO 02/10/19 07:44 4 mg ONETIME ONE Administration Ondansetron HCl 4 mg 02/10/19 07:44 02/10/19 07:51 Zofran Odt PO 02/10/19 07:45 4 mg ONETIME ONE Administration Sodium Biphosphate/Sodium Phosphate 133 ml 02/10/19 06:38 02/10/19 07:11 Fleet Enema RECTAL 02/10/19 06:39 133 ml ONETIME ONE Administration - Radiology Interpretation Free Text/Narrative:: Moderate stool noted. Two views upright with first showing large gas collection Rt side in stent area. Then second was to include bladder, shows movement of the large area of air in the area of the stent. Somewhat more comfortable but still persisting pain. Departure - Departure Time of Disposition: 08:41 Disposition: Home, Self-Care 01 Condition: Fair Clinical Impression: Abdominal pain - Discharge Information *PRESCRIPTION DRUG MONITORING PROGRAM REVIEWED*: Not Applicable *COPY OF PRESCRIPTION DRUG MONITORING REPORT IN PATIENT MARLENI: Not Applicable Referrals: Eleazar Fan [employer] [Primary Care Provider] - Forms: ED Department Discharge Additional Instructions: Continue your medications as needed and ordered. Increase fluids to aid in bowel movements. Contact Eleazar as scheduled for upcoming appointment and concerns. - Problem List & Annotations (1) Abdominal pain SNOMED Code(s): 87709304 Code(s): R10.9 - UNSPECIFIED ABDOMINAL PAIN Status: Acute Priority: High Current Visit: No Qualifiers: Abdominal location: generalized Qualified Code(s): R10.84 - Generalized abdominal pain (2) Primary pancreatic cancer with metastasis to other site SNOMED Code(s): 128668561, 728208232 Code(s): C25.9 - MALIGNANT NEOPLASM OF PANCREAS, UNSPECIFIED Status: Chronic Priority: Medium Current Visit: No (3) Nausea SNOMED Code(s): 689360243 Code(s): R11.0 - NAUSEA Status: Acute Priority: Medium Current Visit: Yes (4) LFT elevation SNOMED Code(s): 765068540, 187045234 Code(s): R94.5 - ABNORMAL RESULTS OF LIVER FUNCTION STUDIES Status: Acute Priority: Medium Current Visit: Yes - Problem List Review Problem List Initiated/Reviewed/Updated: Yes - My Orders Last 24 Hours: My Active Orders 02/10/19 05:11 Abdomen 2V AP Upright Decub [CR] Stat - Assessment/Plan Last 24 Hours: My Active Orders 02/10/19 05:11 Abdomen 2V AP Upright Decub [CR] Stat Plan: Continue your medications as needed and ordered. Increase fluids to aid in bowel movements. Contact Eleazar as scheduled for upcoming appointment and concerns.
[2019-02-10 05:57] LABS: ANION GAP 15.6 mmol/L (5-15); CHLORIDE,CL 102 mmol/L (98-115); SODIUM,NA 141 mmol/L (136-145)
[2019-02-10] MEDS ORDERED: Sodium Phosphate,Monobasic/Sodium Phosphate,Dibasic Enema 133 ML Bottle RECTAL ONE (06:38)
[2019-02-10] MEDS ORDERED: Ondansetron 4 MG Tab.DIS PO ONE ×2 (07:43→07:44)
--- NOTE | 2019-02-10 09:16 | CR ---
[id number] RAD/RAD Abd Flat and Upright 2V Exam: RAD Abd Flat and Upright 2V Clinical Data: ABDOMINAL PAIN COMPARISON: CORRELATION IS MADE WITH THE CAT SCAN OF SEPTEMBER 18, 2018. FINDINGS: A mid transverse colonic stent is seen. Surgical changes also are seen related to the history of a Whipple procedure. Moderate bowel distention is seen. Given the complex history, as the patient now is presenting with abdominal pain, a contrast enhanced CT abdomen pelvis with helpful. IMPRESSION: MODERATE BOWEL DISTENTION. CONSIDER FURTHER EXAMS. Fausto Olmos MD 02/10/19 0915 Thank you for allowing us to participate in the care of your patient.
== END 2019-02-10 08:50 | disposition home or self-care (01) ==
LOC: KA.ED 04:45
DX: R10.9 Unspecified abdominal pain (principal); Z79.899 Other long term (current) drug therapy; Z88.5 Allergy status to narcotic agent; Z88.6 Allergy status to analgesic agent
CPT/HCPCS: 36415; 74021; 80053; 82150; 83690; 85025; 99284; A9270

== ENCOUNTER 2019-02-11 01:44 | Emergency (ER) | payer MEDICARE, BC ==
[2019-02-11] MEDS ORDERED: Sodium Chloride 0.9% 1,000 ML IV ONE (02:14)
[2019-02-11] MEDS ORDERED: Ondansetron 4 MG/2 ML SDV IVPUSH ONE (02:16)
[2019-02-11] MEDS ORDERED: Iopamidol 755 Mg/ML 75 ML Bottle IVPUSH ONE (03:01)
--- NOTE | 2019-02-11 03:12 | EDM.PDOC ---
ED HPI GENERAL MEDICAL PROBLEM - General Chief Complaint: Abdominal Pain Stated Complaint: Abdominal pain Time Seen by Provider: 02/11/19 02:20 Source of Information: Reports: Patient History Limitations: Reports: No Limitations - History of Present Illness INITIAL COMMENTS - FREE TEXT/NARRATIVE: 73-year-old female presents to the emergency room with complaints of abdominal pain. As she was seen in the emergency room yesterday with complaints of constipation. She was discharged home after having a bowel movement from fleets enema. She's been having increasing abdominal pain since last Wednesday. She is followed up with her primary care Eleazar Fan nurse practitioner. She has a history of pancreatic cancer status post Whipple procedure in 2014 she has discontinued her chemotherapy proximally one year after her Whipple as they felt that this was not slowing her cancer down and she was not tolerating chemotherapy due to feeling nauseated. Her main complaint today is abdominal pain states that she has not been drinking much for water but she did receive a liter of fluids yesterday. She only had a small bowel movement earlier today. She felt like she was improving yesterday but her symptoms began to worsen. She is on pain medication for pancreatic cancer. She denies pain with urinating. She has been experiencing nausea. She had an abdominal x-ray upright yesterday showing a nonobstructive bowel gas pattern. No free air or pneumocystitis identified. A nodular opacity overlying the left upper quadrant measuring 1.3 cm which is felt could represent a left lower lobe pulmonary nodule or soft tissue calcification. Onset: Gradual Onset Date: 02/07/19 Duration: Day(s):, Recurring, Waxing/Waning Location: Reports: Abdomen Severity: Severe Improves with: Reports: None Worsens with: Reports: None Associated Symptoms: Reports: Loss of Appetite, Nausea/Vomiting. Denies: Confusion, Chest Pain, Cough, Diaphoresis, Fever/Chills, Shortness of Breath Treatments LAB MANAGER: Reports: Other Medication(s) Right Lower Abdomen Pain Score (Numeric/FACES): 10 - Related Data Allergies Allergy/AdvReac Type Severity Reaction Status Date / Time hydromorphone HCl Allergy Confusion Verified 02/11/19 02:12 [From Dilaudid] morphine Allergy Confusion Verified 02/11/19 02:12 Home Meds: Home Meds Acetaminophen 650 mg PO Q6HR PRN 05/03/17 [History] Pantoprazole [ProTONIX] 40 mg PO BIDAC 09/09/17 [History] Escitalopram [Lexapro] 10 mg PO DAILY #30 tablet 09/27/17 [Rx] Ondansetron [Zofran ODT] 8 mg PO TID PRN #60 tab.dis 09/27/17 [Rx] Vitamin B Complex [B Complex] 1 tab PO ASDIRECTED 08/13/18 [History] Zinc 50 mg PO DAILY 08/13/18 [History] Zolpidem [Ambien] 5 mg PO BEDTIME PRN 08/13/18 [History] Calcium Carbonate/Vitamin D3 [Os-[place]anning 500+D] 1 tab PO ACDINNER 09/10/18 [History] Cyanocobalamin (Vitamin B-12) [Vitamin B-12] 100 mcg PO DAILY 09/10/18 [History] Diclofenac Sodium [Voltaren 1% Gel] 2 gram TOP BID PRN 09/10/18 [History] LORazepam [Ativan] 0.5 mg PO Q8H PRN 09/10/18 [History] Magnesium Hydroxide [Milk of Magnesia] 30 ml PO DAILY PRN 09/10/18 [History] Polyethylene Glycol 3350 [MiraLAX] 1 pkt PO DAILY PRN 09/10/18 [History] Prochlorperazine Maleate [Compazine] 10 mg PO QID PRN 09/10/18 [History] Creon 6000 Unit 6,000 - 12,000 units PO ASDIRECTED PRN 09/15/18 [History] Creon 6000 Unit 18,000 - 24,000 units PO TIDMEALS 09/15/18 [History] Iron Ag,Ps/C/Fa6/B12/Zn/SA/Sto [Niferex Tablet] 1 each PO Q48H #30 tablet [Rx] Hydrocodone/Acetaminophen [Hydrocodon-Acetaminophen 5-325] 1 tab PO Q8H PRN 03/26 [History] Hydrocortisone [Anusol-HC] 1 applic RECTAL ASDIRECTED PRN 02/10/19 [History] Naloxegol Oxalate [Movantik] 25 mg PO DAILY 02/10/19 [History] rOPINIRole HCl [Requip] 0.25 mg PO BEDTIME PRN 02/10/19 [History] Past Medical History HEENT History: Reports: Hard of Hearing, Impaired Vision Cardiovascular History: Reports: Hypertension Gastrointestinal History: Reports: Bowel Obstruction, Chronic Constipation, Diverticulosis, GERD, Hemorrhoids, Other (See Below) Other Gastrointestinal History: pancreatic cancer with mets to the transverse colon Genitourinary History: Reports: None CLINICAL DATA SPECIALIST History: Reports: Musculoskeletal History: Reports: None, Back Pain, Chronic Psychiatric History: Reports: Depression Hematologic History: Reports: Anemia, Blood Transfusion(s) Immunologic History: Reports: Immunosuppression Oncologic (Cancer) History: Reports: Breast, Colon, Pancreatic - Infectious Disease History 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, Herpes - Past Surgical History HEENT Surgical History: Reports: Tonsillectomy Other Respiratory Surgeries/Procedures: h/o smoking GI Surgical History: Reports: Cholecystectomy, Colonoscopy, Other (See Below) Other GI Surgeries/Procedures: whipple resection Female Surgical History: Reports: Breast Biopsy, Mastectomy, Tubal Ligation Other Musculoskeletal Surgeries/Procedures:: bunyon surgery Oncologic Surgical History: Reports: Biopsy of Breast, Mastectomy Social & Family History - Family History Family Medical History: Noncontributory HEENT: Reports: None Cardiac: Reports: None Respiratory: Reports: None GI: Reports: None : Reports: None OBGYN: Reports: None Musculoskeletal: Reports: None Neurological: Reports: None Psychiatric: Reports: None Endocrine/Metabolic: Reports: Hypothyroidism (Sr. alive hypothyroidism), Osteoporosis (Mother alive osteoporosis along with hip fracture) Hematologic: Reports: None Immunologic: Reports: None Oncologic: Reports: Breast (MGMo, in her 90s breast cancer, Paternal aunt, breast cancer) - Tobacco Use Smoking Status *Q: Former Smoker Used Tobacco, but Quit: Yes Month/Year Tobacco Last Used: 2013 - Caffeine Use Caffeine Use: Reports: None - Recreational Drug Use Recreational Drug Use: No ED ROS GENERAL - Review of Systems Review Of Systems: See Below Constitutional: Denies: Fever, Chills HEENT: Reports: No Symptoms Respiratory: Reports: No Symptoms Cardiovascular: Reports: No Symptoms Endocrine: Reports: No Symptoms GI/Abdominal: Reports: Abdominal Pain, Anorexia, Constipation, Nausea : Denies: Dysuria, Flank Pain, Hematuria Musculoskeletal: Reports: No Symptoms Skin: Denies: Jaundice Neurological: Reports: No Symptoms Psychiatric: Reports: No Symptoms Hematologic/Lymphatic: Reports: Anemia Immunologic: Reports: No Symptoms ED EXAM, GI/ABD - Physical Exam Exam: See Below Exam Limited By: No Limitations General Appearance: Alert, Mild Distress, Thin Eyes: Bilateral: EOMI Throat/Mouth: Normal Oropharynx, Normal Voice, No Airway Compromise Head: Atraumatic Neck: Normal Inspection, Supple Respiratory/Chest: No Respiratory Distress, Lungs Clear, Normal Breath Sounds Cardiovascular: Regular Rate, Rhythm, No Murmur GI/Abdominal Exam: No Distention, Tender, Abnormal Bowel Sounds (Hypoactive) Extremities: Normal Inspection, Normal Range of Motion Course - Vital Signs Last Recorded V/S: Last Vital Signs Temp 97.6 F 02/11/19 02:18 Pulse 73 02/11/19 03:34 Resp 16 02/11/19 03:34 BP 163/79 H 02/11/19 03:34 Pulse Ox 95 02/11/19 03:34 - Orders/Labs/Meds Orders: Active Orders 24 hr Category Date Time Status Abdomen 1V Upright [CR] Stat Exams 02/11/19 02:14 Taken Abdomen Pelvis w Cont [CT] Stat Exams 02/11/19 02:51 Taken NS + KCl 20mEq/L [Normal Saline with 20 mEq KCl] 1,000 Med 02/11/19 04:00 Active ml IV ASDIRECTED Medication Orders Potassium Chloride/Sodium Chloride (Normal Saline With 20 Meq Kcl) 1,000 mls @ 125 mls/hr IV ASDIRECTED KATELYN Last Admin: 02/11/19 04:17 Dose: 125 mls/hr Labs: Laboratory Tests 02/11/19 02/11/19 02/11/19 Range/Units 02:45 02:45 03:45 WBC 6.36 (5.00-10.00) 10^3/uL RBC 3.52 L (3.80-5.50) 10^6/uL Hgb 10.3 L (12.0-16.0) g/dL Hct 31.4 L (37.0-47.0) % MCV 89.2 (82.0-92.0) fL MCH 29.3 (27.0-31.0) pg MCHC 32.8 (32.0-36.0) g/dL RDW 19.6 H (11.5-14.5) % Plt Count 334 (150-400) 10^3/uL MPV 7.9 (7.4-10.4) fL Immature Gran % (Auto) 0.5 (0.0-5.0) % Neut % (Auto) 85.7 H (50.0-70.0) % Lymph % (Auto) 7.2 L (20.0-40.0) % [place] % (Auto) 6.6 (2.0-8.0) % Eos % (Auto) 0.0 L (1.0-3.0) % Baso % (Auto) 0.0 (0.0-1.0) % Immature Gran # (Auto) 0.03 (0.00-0.50) 10^3/uL Neut # (Auto) 5.45 (2.50-7.00) 10^3/uL Lymph # (Auto) 0.46 L (1.00-4.00) 10^3/uL [place] # (Auto) 0.42 (0.10-0.80) 10^3/uL Eos # (Auto) 0.00 L (0.10-0.30) 10^3/uL Baso # (Auto) 0.00 (0.00-0.10) 10^3/uL Sodium 140 (136-145) mmol/L Potassium 3.0 L (3.3-5.3) mmol/L Chloride 98 (98-115) mmol/L Carbon Dioxide 26.7 (21.0-32.0) mmol/L Anion Gap 18.3 H (5-15) mmol/L BUN 15 (6-25) mg/dL Creatinine 0.62 (0.51-1.17) mg/dL Est Cr Clr Drug Dosing 60.19 mL/min Estimated GFR (MDRD) > 60 mL/min Glucose 163 H (75 - 99) mg/dL Calcium 8.9 (8.7-10.3) mg/dL Total Bilirubin 1.9 H (0.2-1.0) mg/dL Direct Bilirubin 1.5 H* (0.0-0.2) mg/dL Indirect Bilirubin 0.4 mg/dL AST 115 H (15-37) U/L ALT 127 H (12-78) U/L Alkaline Phosphatase 1364 H (46-116) IU/L Total Protein 6.4 (6.4-8.2) g/dL Albumin 2.57 L (3.00-4.80) g/dL Globulin 3.83 Albumin/Globulin Ratio 0.67 Amylase 17 L (25-125) U/L Lipase 21 L (73-393) U/L Specimen Type Urincc Urine Color [place] H (YELLOW) Urine Appearance Slightly cloudy H (CLEAR) Urine pH 6.0 (5.0-9.0) Ur Specific [place] 1.020 (1.005-1.030) Urine Protein Negative (NEGATIVE) mg/dL Urine Glucose (UA) Negative (NEGATIVE) mg/dL Urine Ketones Trace H (NEGATIVE) mg/dL Urine Occult Blood Negative (NEGATIVE) Urine Nitrite Negative (NEGATIVE) Urine Bilirubin Small H (NEGATIVE) Urine Urobilinogen 0.2 (0.2-1.0) E.U./dL Ur Leukocyte Esterase Negative (NEGATIVE) Urine RBC 0-5 (0-5) /HPF Urine WBC 0-5 (0-5) /HPF Ur Epithelial Cells Few /LPF Other Crystals See note /HPF Urine Bacteria Few (NONE TO FEW) /HPF Meds: Medications Generic Name Dose Route Start Last Admin Trade Name Freq PRN Reason Stop Dose Admin Potassium Chloride/Sodium Chloride 1,000 mls @ 125 mls/hr 02/11/19 04:00 04/26 04:17 Normal Saline With 20 Meq Kcl IV 125 mls/hr ASDIRECTED KATELYN Administration Discontinued Medications Generic Name Dose Route Start Last Admin Trade Name Freq PRN Reason Stop Dose Admin Sodium Chloride 1,000 mls @ 999 mls/hr 02/11/19 02:14 02/11/19 02:48 Normal Saline IV 02/11/19 03:14 999 mls/hr .BOLUS ONE Administration Iopamidol 75 ml 02/11/19 03:01 Isovue-370 (76%) IVPUSH 02/11/19 03:02 ONETIME ONE Ondansetron HCl 4 mg 02/11/19 02:16 02/11/19 02:49 Zofran IVPUSH 02/11/19 02:17 4 mg ONETIME ONE Administration - Radiology Interpretation Free Text/Narrative:: Single view of the abdomen upright Findings: -There is a stent likely in the transverse colon. There is wall thickening of the right colon is indeterminate. Moderate to large amount of stool is in the colon. No evidence of small bowel obstruction. Impression: -Nonspecific colonic wall thickening raises the possibility of colitis. Moderate to large amount of stool in the colon. CT the abdomen and pelvis with IV contrast Findings: -There is marked intrahepatic biliary ductal dilation. Etiology uncertain. There is also pneumobilia. -Small nonobstructive right renal stones. No hydronephrosis -The spleen is unremarkable -The abdominal aorta is normal in diameter -Suspect previous Whipple procedure -Periaortic adenopathy is indeterminate -There is a stent in the transverse colon. Proximal to the stent in the ascending colon is predominantly dilated containing a large amount of stool consistent with a colonic obstruction. -There is mild free fluid -There is a dilated fluid loop of small bowel adjacent to the liver that is indeterminate -The bladder is unremarkable. There are calcified soft tissue densities along the psoas muscle bilaterally which is indeterminate. -There are nonspecific rectal sigmoid wall thickening -Ill-defined densities of the right lower lung may represent scarring Impression: -Right sided colonic obstruction -Mild free fluid -Dilated loop of small bowel adjacent to the liver is indeterminate -Predominate biliary ductal dilation CT Results Date: 02/11/19 CT Results Time: 03:20 - Re-Assessments/Exams Free Text/Narrative Re-Assessment/Exam: 02/11/19 04:52 Patient has been stable. She is not requested any current pain medications although it has been offered for her. She's been given Zofran and her nausea is been stable. She has not had emesis. Departure - Departure Time of Disposition: 05:15 Disposition: DC/Tfer to [facility] Condition: Fair Clinical Impression: Colonic obstruction, Nausea, Primary pancreatic cancer with metastasis to other site, Hypokalemia Abdominal pain Qualifiers: Abdominal location: generalized Qualified Code(s): R10.84 - Generalized abdominal pain - Discharge Information Forms: ED Department Discharge - My Orders Last 24 Hours: My Active Orders 02/11/19 02:14 Abdomen 1V Upright [CR] Stat 02/11/19 02:51 Abdomen Pelvis w Cont [CT] Stat 02/11/19 04:00 NS + KCl 20mEq/L [Normal Saline with 20 mEq KCl] 1,000 ml IV ASDIRECTED - Assessment/Plan Last 24 Hours: My Active Orders 02/11/19 02:14 Abdomen 1V Upright [CR] Stat 02/11/19 02:51 Abdomen Pelvis w Cont [CT] Stat 02/11/19 04:00 NS + KCl 20mEq/L [Normal Saline with 20 mEq KCl] 1,000 ml IV ASDIRECTED Assessment:: 1. Right-sided colonic obstruction 2. Mild free fluid 3. Prominent biliary ductal dilation 4. Pancreatic cancer, history of Whipple 5. Mild hypokalemia Plan: Discussed findings with patient and . She has a right sided colonic obstruction and prominent biliary ductal dilation concern for obstruction secondary pancreatic cancer. Hypokalemia correction with 20 mEq of potassium running at 125 mL an hour. Patient will be transferred to [place] [id number] for definitive care. Patient has been accepted a hospitalist Dr. Tatum, patient's room number is 630. Patient will be transferred by ground ambulance. Patient is in stable condition.
[2019-02-11 03:14] LABS: ANION GAP 18.3 mmol/L (5-15); CHLORIDE,CL 98 mmol/L (98-115); SODIUM,NA 140 mmol/L (136-145)
[2019-02-11] MEDS ORDERED: NS + KCl 20mEq/L 1,000 ML IV SCH (04:00)
[2019-02-11 05:32] VITALS: BP 145/77
--- NOTE | 2019-02-11 08:59 | CT ---
[id number] CT/CT Abdomen Pelvis W IV EXAM: CT Abdomen Pelvis W IV CLINICAL DATA: PANCREATIC CANCER COMPARISON STUDY: September 18, 2018. FINDINGS: Lung bases are clear. Moderate right and severe left shoulder hepatic biliary ductal dilatation. Additionally there is a small amount of pneumobilia. Postsurgical changes following Whipple procedure. The spleen, and adrenal glands are unremarkable. Punctate nonobstructing right renal calculi. The kidneys are otherwise unremarkable. No hydronephrosis or hydroureter. Multiple prominent mesenteric lymph nodes, nonspecific. There is a stent within the transverse colon. Proximal to the stent there is marked distention of the colon with stool and gas. The colon is distended up to 9.0 cm. There is a small amount of associated free fluid. Additionally there is a prominent loop of small bowel adjacent to the liver. This appears to be proximal to an anastomotic line. Additionally, there appears to be circumferential thickening of the rectum, nonspecific. IMPRESSION: 1. Findings suggestive of obstruction involving the right colon with dilated a sending colon measuring up to 9.0 cm. Additionally there is associated free fluid. No pneumoperitoneum. 2. Dilated loop of small bowel adjacent to the liver appears to be proximal to anastomotic line. This is nonspecific but could suggest small bowel obstruction. 3. Moderate right and severe left intrahepatic biliary ductal dilatation with a small amount of pneumobilia. Correlate clinically. Sanjay Rosales DO 02/11/19 0858 Thank you for allowing us to participate in the care of your patient.
--- NOTE | 2019-02-11 09:10 | CR ---
[id number] RAD/RAD Abdomen Flat Plate 1V EXAM: RAD Abdomen Flat Plate 1V INDICATION: RIGHT SIDED ABD PAIN COMPARISON: None. DISCUSSION: Small amount of pneumobilia. There is a stent which appears to be within the transverse colon. Proximal to the stent there is a gas and stool distended loop of a sending colon. No free air is identified. IMPRESSION: Gas and stool distended ascending colon proximal to a transverse colon stent. This could suggest colonic obstruction. Sanjay Rosales DO 02/11/19 0909 Thank you for allowing us to participate in the care of your patient.
== END 2019-02-11 05:04 | disposition critical access hospital (66) ==
LOC: KA.ED 01:44
DX: K56.609 Unspecified intestinal obstruction, unspecified as to partial versus complete obstruction (principal); K83.8 Other specified diseases of biliary tract; C25.9 Malignant neoplasm of pancreas, unspecified; C78.5 Secondary malignant neoplasm of large intestine and rectum; E87.6 Hypokalemia; I10 Essential (primary) hypertension; F32.9 Major depressive disorder, single episode, unspecified; Z79.899 Other long term (current) drug therapy; Z88.5 Allergy status to narcotic agent; Z88.6 Allergy status to analgesic agent
CPT/HCPCS: 74018; 74177; 80048; 80076; 81001; 82150; 83690; 85025; 96361; 96374; 99285; 99285-25; J2405; J3480; J7030; Q9967